=== PATIENT | female | born 1985 | race Caucasian/White ===

== ENCOUNTER 2022-03-19 21:41 | Inpatient (IN) | payer MEDICARE, MEDICAID, SELFPAY ==
[2022-03-19 21:55] VITALS: BP 111/78; PULSE 109; RESP 14; TEMP 36.4; O2SAT 100
--- NOTE | 2022-03-19 22:10 | XRR_ITS ---
PROCEDURE INFORMATION: Exam: XR Right Hand Exam date and time: 03/19/2022 11:06 PM Age: 36 years old Clinical indication: Injury or trauma; Other: Not specified; Blunt trauma (contusions or hematomas); Hand; Right TECHNIQUE: Imaging protocol: Radiologic exam of the Right hand. Views: 3 or more views. Frontal Oblique Lateral COMPARISON: CR XR forearm RT 2V [id number] 03/19/2022 11:04 PM FINDINGS: Bones/joints: There is normal alignment without fractures or dislocations. The joints appear unremarkable. The visualized incompletely evaluated wrist region is grossly unremarkable. Soft tissues: There is no radiographic soft tissue swelling. There are no radiopaque foreign bodies. Notes: If there is further concern, recommend follow-up radiographs or MRI for complete assessment. XR/XR hand RT min 3V* [id number] IMPRESSION: No fractures or dislocation of the right hand.
--- NOTE | 2022-03-19 22:11 | XRR_ITS ---
PROCEDURE INFORMATION: Exam: XR Right Forearm Exam date and time: 03/19/2022 11:04 PM Age: 36 years old Clinical indication: Injury or trauma; Other: Not specified; Blunt trauma (contusions or hematomas); Arm, lower; Right TECHNIQUE: Imaging protocol: Radiologic exam of the Right forearm. Views: 2 views. Frontal and lateral COMPARISON: No relevant prior studies available. FINDINGS: Bones/joints: There is normal alignment without fractures or dislocations. The visualized incompletely evaluated wrist and elbow joints are anatomically aligned. Soft tissues: There is no radiographic soft tissue swelling. There are no radiopaque foreign bodies. Notes: If there is further concern, recommend follow-up radiographs or bone scan for complete assessment. XR/XR forearm RT 2V [id number] IMPRESSION: No fractures or dislocation of the right forearm.
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
[2022-03-19 23:53] LABS: HCG Qualitative Urine. Negative (Negative)
[2022-03-19 23:59] LABS: Amphetamines Screen Urine Negative (Negative); Barbiturates Screen Urine Negative (Negative); Benzodiazepines Screen Urine Negative (Negative); Cocaine Screen Urine Negative (Negative); Opiate Screen Urine Negative (Negative); PCP Screen Urine Negative (Negative); THC Screen Urine Positive (Negative)
[2022-03-20 00:25] LABS: Basophils % 0.2 %; Eosinophils % 0.1 %; Hematocrit 34.5 % (37.0-47.0); Hemoglobin 11.8 g/dL (11.5-15.3); Lymphocytes # 1.8 10^3/uL (0.8-4.8); Lymphocytes % 12.8 %; Mean Corpuscular HGB Conc 34.2 g/dL (30.0-36.0); Mean Corpuscular Hemoglobin 30.5 pg (28.0-34.0); Mean Corpuscular Volume 89.1 fl (81-99); Mean Platelet Volume 9.9 fL (7.4-10.4); Monocytes # 0.7 10^3/uL (0.2-0.9); Monocytes % 4.8 %; Neutrophils # 11.15 10^3/uL (1.8-7.7); Neutrophils % 81.6 %; Nucleated Red Blood Cells % 0 %; Platelet Count 294 10^3/cmm (130-400); Red Blood Count 3.87 10^6/uL (4.1-5.3); Red Cell Distribution Width 14.3 % (12.1-15.1); White Blood Count 13.7 10^3/uL (4.0-10.0)
[2022-03-20 00:46] LABS: Alanine Aminotransferase 14 U/L (0-33); Albumin Level 4.5 g/dL (3.5-5.2); Alkaline Phosphatase 54 IU/L (35-105); Anion Gap 15.8 (5-19); Aspartate Amino Transferase 15 U/L (0-32); Blood Urea Nitrogen 16 mg/dL (6-20); Calcium 9.1 mg/dL (8.5-10.5); Carbon Dioxide 24 mmol/L (22-29); Chloride 99 mmol/L (98-107); Globulin 2.8 g/dL (1.3-4.6); Glomerular Filtration Rate 93.6 mL/min (90-130); Glucose 97 mg/dL (65-115); Osmolality Calculated 281 mOsm/kg (285-295); Potassium 3.8 mmol/L (3.5-5.1); Salicylate 0.4 mg/dL (3-10); Sodium 135 mmol/L (136-145); Total Bilirubin 0.4 mg/dL (0.15-1.2); Total Protein 7.3 g/dL (6.6-8.7)
[2022-03-20 00:50] LABS: Acetaminophen < 5.0 ug/mL (10-30); Alcohol Level < 10 mg/dL (0-10)
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
[2022-03-20 02:04] VITALS: BP 100/65; PULSE 87; RESP 16; TEMP 36.4; O2SAT 95
[2022-03-20 06:00] VITALS: BP 101/67; PULSE 82; RESP 16; TEMP 37.1; O2SAT 99
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
[2022-03-20] MEDS: venlafaxine ER (24HR) 75 mg Capsule 225 MG PO (09:00)
[2022-03-20] MEDS: metoprolol succinate ER (24 HR) 25 mg Tablet PO (09:01)
[2022-03-20] MEDS: hyDROXYzine 25 mg Capsule 50 MG PO ×2 (09:01→22:32)
[2022-03-20 14:00] VITALS: BP 110/75; PULSE 95; RESP 20; TEMP 36.8; O2SAT 96
[2022-03-20] MEDS: ARIPiprazole 10 mg Tablet PO (19:51)
[2022-03-20 20:00] VITALS: BP 112/73; PULSE 100; RESP 17; TEMP 36.8; O2SAT 96
[2022-03-20] MEDS: trazodone 50 mg Tablet PO (22:32)
[2022-03-21 06:00] VITALS: BP 98/63; PULSE 90; RESP 17; TEMP 36.8; O2SAT 97
[2022-03-21] MEDS: venlafaxine ER (24HR) 75 mg Capsule 225 MG PO (08:09)
[2022-03-21] MEDS: metoprolol succinate ER (24 HR) 25 mg Tablet PO (08:09)
[2022-03-21] MEDS: ARIPiprazole 10 mg Tablet PO (08:09)
[2022-03-21 10:11] LABS: Basophils % 0.8 %; Eosinophils # 0.2 10^3/uL (0.0-0.8); Eosinophils % 3.6 %; Hematocrit 38.8 % (37.0-47.0); Hemoglobin 12.9 g/dL (11.5-15.3); Lymphocytes # 2.6 10^3/uL (0.8-4.8); Lymphocytes % 48.8 %; Mean Corpuscular HGB Conc 33.2 g/dL (30.0-36.0); Mean Corpuscular Hemoglobin 30.5 pg (28.0-34.0); Mean Corpuscular Volume 91.7 fl (81-99); Monocytes # 0.6 10^3/uL (0.2-0.9); Monocytes % 10.9 %; Neutrophils # 1.87 10^3/uL (1.8-7.7); Neutrophils % 35.5 %; Nucleated Red Blood Cells % 0 %; Platelet Count 328 10^3/cmm (130-400); Red Blood Count 4.23 10^6/uL (4.1-5.3); Red Cell Distribution Width 14.6 % (12.1-15.1); White Blood Count 5.3 10^3/uL (4.0-10.0)
[2022-03-21 10:15] LABS: Add Urine Microscopic? NO; Charge for UA Resulting for Rev
[2022-03-21 10:27] LABS: Bilirubin Urine 1+ (Negative); Blood Urine Neg (Negative); Glucose Urine UA Norm (Normal); Ketones Urine 1+ (Negative); Nitrate Urine Negative (Negative); Protein Urine Neg (Negative); Urine Appearance Clear (CLEAR); Urine Color Yellow (Yellow); pH Urine 6.5 (5-7)
[2022-03-21 10:28] LABS: Leukocyte Esterase Urine Negative (Negative); Urobilinogen Urine 1 mg/dL (Negative)
[2022-03-21 10:42] LABS: Anion Gap 11.5 (5-19); Blood Urea Nitrogen 10 mg/dL (6-20); Calcium 9.3 mg/dL (8.5-10.5); Carbon Dioxide 30 mmol/L (22-29); Chloride 101 mmol/L (98-107); Glomerular Filtration Rate 93.6 mL/min (90-130); Glucose 101 mg/dL (65-115); Osmolality Calculated 285 mOsm/kg (285-295); Potassium 4.5 mmol/L (3.5-5.1); Sodium 138 mmol/L (136-145)
[2022-03-21 13:47] VITALS: BP 91/51; PULSE 91; RESP 16; TEMP 36.9; O2SAT 99
[2022-03-21 13:58] VITALS: BP 108/72
--- NOTE | 2022-03-21 17:03 | P.NPUPN_ITS ---
Subjective NPU Subjective: Patient presents today reporting that there have been no ill effects from the Abilify. We discussed that is the first and most desired initial response and our desire is to titrate to effect. We continue to discuss her psychosis and she seems more open to speaking to this com writer about some of the challenges of her life. She reports that her mother visited today but she is really struggling with the idea of allowing her mother to connect with her. We discussed aftercare and residential arrangements as well. Mental Status Exam MSE Comments: This is a underweight white female in hospital scrubs with adequate grooming but limited eye contact. No abnormal movements except for mild psychomotor retardation. Cooperative with exam in mild distress. Speech was decreased rate and volume with continued pauses either as a sign of thought blocking or as a sign of measuring how to answer the questions, but seeming more like thought blocking. Mood described as okay; affect odd. Thought process, linear and organized for the most part. Thought content: patient denied any suicidal or homicidal ideation, there were no delusions reported but paranoia clearly existed, possible persecutory delusions. She denied auditory or visual hallucinations, but it was clear whether she has had an internal pre-occupation. Attention and concentration were limited, and memory was questionable but unclear whether that was on purpose or not. She is alert and oriented to person and place and understands purpose possibly. Insight limited, judgment limited, impulse control impaired. Vitals/I&O/Wt Last Vital Signs Temp 98.4 F 03/21/22 13:47 Pulse 91 03/21/22 13:47 Resp 16 03/21/22 13:47 BP 108/72 03/21/22 13:58 Pulse Ox 99 03/21/22 13:47 Weight last 48 hrs Weight 50.349 kg Data NPU : 03/21/22 09:55 03/21/22 09:55 A&P Assessment and plan (1) Acute psychosis: Status: Acute (2) Patient needs psychiatric hold for evaluation: Status: Acute Plan This is a 27-year-old, white female, with possible active addiction, clear psychosis, and reports of odd and aggressive behaviors on a 96-hour hold. 1. Initiated Abilify 10 mg p.o. daily 03/20/2022. 2. Encourage individual, group, and milieu therapy. 3. Continue q-15 minute checks for safety. 4. Encourage sober living treatment after discharge, at the highest level of care, to which she is willing to commit. Involuntary Hold Information 96 Hour Hold: 96 Hour Involuntary Admission: Yes 96 Hour Hold Ending Date: 03/26/22 96 Hour Hold Ending Time: 01:10 Attestations NPU Medical Necessity Statement*: Inpatient hospitalization is medically necessary and the clinically appropriate intervention, at this time. We will monitor medications and make changes as indicated. Likely length of stay is four to six days. Coding Level of Care Code Acute Avionics Supervisor for Liz Fwd Diagnoses Acute psychosis F23 Patient needs psychiatric hold for evaluation Z00.8
[2022-03-21] MEDS: nicotine 2 mg Gum BUCCAL (19:46)
[2022-03-21] MEDS: hyDROXYzine 25 mg Capsule 50 MG PO (20:05)
[2022-03-21] MEDS: trazodone 50 mg Tablet PO (20:06)
[2022-03-21 20:26] VITALS: BP 106/76; PULSE 105; RESP 17; TEMP 36.6; O2SAT 94
[2022-03-22 06:00] VITALS: BP 96/70; PULSE 91; RESP 16; TEMP 36.8; O2SAT 97
--- NOTE | 2022-03-22 09:23 | PC.NURSE ---
Walked & talked with patient. She feels that life will be full of more bullshit for her. She doesn't want to have kids, but says that her cards have been dealt and she will an asshole & a have a bullshit job. She spoke of her anger issues. 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
[2022-03-22] MEDS: venlafaxine ER (24HR) 75 mg Capsule 225 MG PO (10:34)
[2022-03-22] MEDS: ARIPiprazole 10 mg Tablet PO (10:35)
[2022-03-22] MEDS: metoprolol succinate ER (24 HR) 25 mg Tablet PO (10:35)
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
[2022-03-22 14:00] VITALS: BP 104/73; PULSE 95; RESP 16; TEMP 36.8; O2SAT 97
[2022-03-22] MEDS: nicotine 2 mg Gum BUCCAL (16:49)
[2022-03-22] MEDS: BuSPIRONE 10 mg Tablet PO (17:47)
[2022-03-22 21:11] VITALS: BP 98/65; PULSE 84; RESP 18; TEMP 36.6; O2SAT 98
[2022-03-22] MEDS: trazodone 50 mg Tablet PO (22:05)
[2022-03-22] MEDS: hyDROXYzine 25 mg Capsule 50 MG PO (22:05)
[2022-03-23 06:00] VITALS: BP 101/71; PULSE 88; RESP 20; TEMP 37.1; O2SAT 98
--- NOTE | 2022-03-23 07:42 | P.NPUPN_ITS ---
Subjective NPU Subjective: Patient resents today reporting that she feels the BuSpar was really helpful but medications seem to be having an overall positive impact. She struggled to get illustrations but seem to be less preoccupied. She was able to talk about family and that she has a 22-year-old son. She was talking about different possible living arrangements but that things in the air. We again discussed taking her time and making sure that this is treated appropriately so that she has significant resolution of the psychosis and is able to start fresh and discussed us needing to monitor her closely until c hanges are noted. Mental Status Exam MSE Comments: This is a underweight white female in hospital scrubs with appropriate grooming and improving eye contact. No abnormal movements except for mild psychomotor retardation and a significant gait abnormality was causing significant side to side motion as she propels her self forward.? Cooperative with exam in mild distress. Speech was decreased rate and volume with less pauses for likely thought blocking.? Mood described as better: Affect less odd. Thought process, linear and organized for the most part. Thought content: patient denied any suicidal or homicidal ideation, there were no delusions reported but paranoia clearly existed as well as possible persecutory delusions. She denied auditory or visual hallucinations, but it was clear there is internal pre-occupation at times Attention and concentration were limited, and memory was questionable but unclear whether that was on purpose or not. She is alert and oriented to person and place and understands purpose possibly. Insight and judgment limited but improving, impulse control impaired. 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 1. Initiated Abilify 10 mg p.o. daily 03/20/2022. BuSpar 10 mg p.o. twice daily added 03/22/2022 2. Encourage individual, group, and milieu therapy. 3. Continue q-15 minute checks for safety. 4. Encourage sober living treatment after discharge, at the highest level of care, to which she is willing to commit. Involuntary Hold Information 96 Hour Hold: 96 Hour Involuntary Admission: Yes 96 Hour Hold Ending Date: 03/26/22 96 Hour Hold Ending Time: 01:10 Attestations NPU Medical Necessity Statement*: Inpatient hospitalization is medically necessary and the clinically appropriate intervention, at this time. We will monitor medications and make changes as indicated. Likely length of stay is four to six days. Coding Level of Care Code Acute Transmission Design Engineer for Liz Jimenez Diagnoses History of traumatic brain injury Z87.820 Acute psychosis F23 No pertinent past medical history Z78.9 Patient needs psychiatric hold for evaluation Z00.8
[2022-03-23] MEDS: ondansetron 4 MG Tablet PO (09:26)
[2022-03-23] MEDS: venlafaxine ER (24HR) 75 mg Capsule 225 MG PO (09:26)
[2022-03-23] MEDS: ARIPiprazole 10 mg Tablet PO (09:26)
[2022-03-23] MEDS: metoprolol succinate ER (24 HR) 25 mg Tablet PO (09:27)
[2022-03-23] MEDS: nicotine 2 mg Gum BUCCAL ×3 (09:27→18:26)
[2022-03-23] MEDS: BuSPIRONE 10 mg Tablet PO ×2 (09:27→18:00)
[2022-03-23] MEDS: calcium carbonate 500 mg Chew Tablet 1000 MG PO ×2 (11:51→15:56)
[2022-03-23 14:00] VITALS: BP 97/71; PULSE 82; RESP 17; TEMP 36.6; O2SAT 93
[2022-03-23 19:51] VITALS: BP 110/81; PULSE 90; RESP 16; TEMP 36.8; O2SAT 99
[2022-03-23] MEDS: simethicone 80 mg Chew PO (20:19)
[2022-03-23] MEDS: loperamide 2 mg Capsule PO (23:17)
[2022-03-24 06:00] VITALS: BP 113/66; PULSE 77; RESP 16; TEMP 36.6; O2SAT 97
[2022-03-24] MEDS: ARIPiprazole 10 mg Tablet PO (09:04)
[2022-03-24] MEDS: metoprolol succinate ER (24 HR) 25 mg Tablet PO (09:04)
[2022-03-24] MEDS: venlafaxine ER (24HR) 75 mg Capsule 225 MG PO (09:04)
[2022-03-24] MEDS: BuSPIRONE 10 mg Tablet PO ×2 (09:04→18:00)
[2022-03-24 14:00] VITALS: BP 101/71; PULSE 87; RESP 12; TEMP 36.9; O2SAT 98
[2022-03-24] MEDS: simethicone 80 mg Chew PO (15:44)
--- NOTE | 2022-03-24 15:44 | W.PM.NPUPNS ---
Subjective NPU Subjective: Patient admitted on 96 hour hold with bizarre psychotic symptoms and continues to remain guarded regarding her hospitalization. She reports that she was here because she had punched a wall. She reports being upset at her mother and reports that she has a son who lives outside of her home. She reports that she has been hearing voices, patient reports that she has not had any side effects from her medication. She had reported a history of traumatic brain injury. She denies depressed mood at this time. Mental Status Exam MSE Comments: This is a underweight white female in hospital scrubs with appropriate grooming and improving eye contact. No abnormal movements except for mild psychomotor retardation.? Cooperative with exam in mild distress. Speech was decreased rate and volume with continued evidence of thought blocking. Mood described as a little better: Affect less odd. Thought process, linear and organized for the most part. Thought content: patient denied any suicidal or homicidal ideation, there were no delusions reported but paranoia clearly existed as well as possible persecutory delusions. She denied auditory or visual hallucinations, and she appeared to be responding to internal stimuli. Attention and concentration were limited, and memory was questionable but unclear whether that was on purpose or not. She is alert and oriented to person and place and understands purpose possibly. Insight and judgment limited but improving, impulse control impaired. 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 1. Continue Abilify 10mg daily. Continue ? BuSpar 10 mg p.o. twice daily . 2. Encourage individual, group, and milieu therapy. 3. Continue q-15 minute checks for safety. 4. Encourage sober living treatment after discharge, at the highest level of care, to which she is willing to commit. Involuntary Hold Information 96 Hour Hold: 96 Hour Involuntary Admission: Yes 96 Hour Hold Ending Date: 03/26/22 96 Hour Hold Ending Time: 01:10 Attestations NPU Medical Necessity Statement*: Inpatient hospitalization is medically necessary and the clinically appropriate intervention, at this time. We will monitor medications and make changes as indicated. Likely length of stay is four to six days. Coding Level of Care Code Established Pt Acute [facility] Partner for [facility]g Fwd Patient Type Established History Problem Focused Exam Problem Focused Medical Decision Making Straight Forward Diagnoses History of traumatic brain injury Z87.820 Patient needs psychiatric hold for evaluation Z00.8 Acute psychosis F23 No pertinent past medical history Z78.9
[2022-03-24] MEDS: nicotine 2 mg Gum BUCCAL (16:59)
[2022-03-24 20:19] VITALS: BP 105/76; PULSE 76; RESP 16; TEMP 36.3; O2SAT 100
[2022-03-25 06:00] VITALS: BP 110/79; PULSE 80; RESP 18; TEMP 36.7; O2SAT 98
[2022-03-25] MEDS: venlafaxine ER (24HR) 75 mg Capsule 225 MG PO (08:26)
[2022-03-25] MEDS: metoprolol succinate ER (24 HR) 25 mg Tablet PO (08:26)
[2022-03-25] MEDS: ARIPiprazole 10 mg Tablet PO (08:26)
[2022-03-25] MEDS: BuSPIRONE 10 mg Tablet PO ×2 (08:26→17:09)
[2022-03-25] MEDS: simethicone 80 mg Chew PO (08:27)
--- NOTE | 2022-03-25 11:56 | P.NPUPN_ITS ---
Subjective NPU Subjective: The patient reports that she is still uncertain about her reasons for hospitalization but reports that she came here because part of her forearm felt out of place. SHe reports history of anger and impulsivity with a history of punching various objects including harden. She reports that she has been less distracted by the voices. She reports no feelings of hopelessness. She still at times remained confused on the unit and appeared somewhat difficult to engage despite being polite and compliant with medications. She reports struggling to take medications and endorsed some withdrawal symptoms when forgetting to take her 225mg of venlafaxine. She was unable to describe why she was taking these medications. Mental Status Exam MSE Comments: This is a underweight white female in hospital scrubs with appropriate grooming and improving eye contact. No abnormal movements except for mild psychomotor retardation.? Cooperative with exam in mild distress. Speech was decreased rate and volume with continued evidence of thought blocking.? Mood described as better: Affect remained blunted. Thought process,nonlinear and superficial. Thought content: patient denied any suicidal or homicidal ideation, there was more evidence of delusions of persecutions. She denied auditory or visual hallucinations, and she appeared to be responding to internal stimuli.? Attention and concentration were limited, and memory was questionable but unclear whether that was on purpose or not. She is alert and oriented to person and place and purpose (to get help) Insight and judgment were poor. impulse control remained limited. 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 1. Increase Abilify 15mg daily.? Continue ? BuSpar 10 mg p.o. twice daily . Reduce Effexor to 150mg in am due to concern about 2d6 drug drug interaction with abilify causing increase risk of serotonin syndrome. 2. Encourage individual, group, and milieu therapy. 3. Continue q-15 minute checks for safety. 4. Encourage sober living treatment after discharge, at the highest level of care, to which she is willing to commit. Involuntary Hold Information 96 Hour Hold: 96 Hour Involuntary Admission: Yes 96 Hour Hold Ending Date: 03/26/22 96 Hour Hold Ending Time: 01:10 Attestations NPU Medical Necessity Statement*: Inpatient hospitalization is medically necessary and the clinically appropriate intervention, at this time. We will monitor medications and make changes as indicated. Likely length of stay is four to six days. Filed for 21 day stay today involuntarily. Coding Level of Care Code Established Pt Acute Automobile Upholstery Trim Installer for Liz Jimenez Patient Type Established History Problem Focused Exam Problem Focused Medical Decision Making Straight Forward Diagnoses History of traumatic brain injury Z87.820 Patient needs psychiatric hold for evaluation Z00.8 Acute psychosis F23
[2022-03-25] MEDS: nicotine 2 mg Gum BUCCAL ×2 (11:58→15:11)
[2022-03-25 13:06] VITALS: BP 111/74; PULSE 74; RESP 18; TEMP 36.6; O2SAT 97
[2022-03-25 19:59] VITALS: BP 111/74; PULSE 88; RESP 18; TEMP 36.5; O2SAT 95
[2022-03-26] MEDS: acetaminophen 325 mg Tablet 650 MG PO (05:03)
[2022-03-26 06:00] VITALS: BP 107/75; PULSE 92; RESP 16; TEMP 36.4; O2SAT 98
[2022-03-26] MEDS: ARIPiprazole 10 mg Tablet 15 MG PO (09:43)
[2022-03-26] MEDS: BuSPIRONE 10 mg Tablet PO ×2 (09:44→18:39)
[2022-03-26] MEDS: metoprolol succinate ER (24 HR) 25 mg Tablet PO (09:44)
[2022-03-26] MEDS: venlafaxine ER (24HR) 150 mg Capsule PO (09:44)
[2022-03-26] MEDS: nicotine 2 mg Gum BUCCAL (09:44)
[2022-03-26] MEDS: OLANZapine 5 mg ODT PO (12:08)
--- NOTE | 2022-03-26 13:25 | W.PM.NPUPNS ---
Subjective NPU Subjective: The patient reports feeling confused at times, she had no aggressive outbursts, she has been trying to participate in groups. She reports adequate sleep and reports that her thoughts have been less obsessive per patient . She reports that she continues to have a problem with poor decision making. She reports that she had freaked out after the presence of a dog in the past reminded her of past trauma. She reported no worsening of mood and no worsening anxiety with the reduction of effexor to 150mg daily. No side effects reported today. Mental Status Exam MSE Comments: This is a underweight white female in hospital scrubs with appropriate grooming and improving eye contact. No abnormal movements except for mild psychomotor retardation.? Cooperative with exam in no distress. Speech was decreased rate and volume with continued evidence of thought blocking.? Mood described as? better: Affect remained blunted. ? Thought process,nonlinear and superficial.? Thought content: patient denied any suicidal or homicidal ideation, there was more evidence of delusions of persecutions. ? She denied auditory or visual hallucinations, and she appeared to be responding to internal stimuli.? Attention and concentration were limited, and memory appeared better today in regards to remote recall. She is alert and oriented to person and place and purpose (to get help) Insight and judgment were poor.? impulse control remained limited.? 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 1. Continue Abilify 15mg daily.? Continue ? BuSpar 10 mg p.o. twice daily . Continue Effexor to 150mg in am. 2. Encourage individual, group, and milieu therapy. 3. Continue q-15 minute checks for safety. 4. Encourage sober living treatment after discharge, at the highest level of care, to which she is willing to commit. 5. Assessment of functioning completed by OT, patient has court hearing tommorow for 21 day hold. Involuntary Hold Information 96 Hour Hold: 96 Hour Involuntary Admission: Yes 96 Hour Hold Ending Date: 03/26/22 96 Hour Hold Ending Time: 01:10 Attestations NPU Medical Necessity Statement*: Inpatient hospitalization is medically necessary and the clinically appropriate intervention, at this time. We will monitor medications and make changes as indicated. Likely length of stay is four to six days.? Filed for [address] [place].? Coding Level of Care Code Acute Dentures Lab Technician for Liz Jimenez Diagnoses History of traumatic brain injury Z87.820 Patient needs psychiatric hold for evaluation Z00.8 Acute psychosis F23 No pertinent past medical history Z78.9
[2022-03-26 14:00] VITALS: BP 113/75; PULSE 99; RESP 18; TEMP 36.7; O2SAT 99
--- NOTE | 2022-03-26 14:37 | PC.NURSE ---
NEW ORDERS NEW ORDER RECEIVED FROM DR. WOLFF TO OBTAIN OT CONSULT FOR SAFETY AND EVALUATE FOR INDEPENDENT LIVING,
--- NOTE | 2022-03-26 16:22 | PC.NURSE ---
21 DAY SERVED PT WAS SERVED 21 DAY PAPERWORK AT 1615. PT WAS CALM AND COOPERATIVE. PT WAS EDUCATED ON PROCESS, BUT DOES NOT UNDERSTAND WHAT THE 21 DAY HOLD IS, WAS UNABLE TO VERBALIZE UNDERSTANDING DUE TO PSYCHOSIS.
[2022-03-26 19:56] VITALS: BP 105/72; PULSE 78; RESP 18; TEMP 36.6; O2SAT 99
[2022-03-27 06:00] VITALS: BP 100/67; PULSE 76; RESP 16; TEMP 36.8; O2SAT 98
[2022-03-27] MEDS: BuSPIRONE 10 mg Tablet PO ×2 (09:05→17:06)
[2022-03-27] MEDS: OLANZapine 5 mg ODT PO (09:05)
[2022-03-27] MEDS: metoprolol succinate ER (24 HR) 25 mg Tablet PO (09:05)
[2022-03-27] MEDS: venlafaxine ER (24HR) 150 mg Capsule PO (09:05)
[2022-03-27] MEDS: ARIPiprazole 10 mg Tablet 15 MG PO (09:05)
--- NOTE | 2022-03-27 11:12 | P.NPUPN_ITS ---
Subjective NPU Subjective: The patient is 36 y.o white female with TBI and psychosis along with depression seen today. Patient did not go to court but was placed on 21 day hold. She reports that she feels as if she is making more progress and remains hopeful about finding a place to live independently potentially as her homelessness had caused her to decompensate. She reports struggles with remembering to take medications and also reported having had severe depression in the past leading her to not wanting to shower or brush her teeth for several days at a time. She reports that she still has unusual thoughts in her head but did not elaborate today. She reports that the voices have diminished at this time. She denied any current thoughts of hurting herself or others. Mental Status Exam MSE Comments: This is a underweight white female in hospital scrubs with appropriate grooming and improving eye contact. No abnormal movements except for mild psychomotor retardation.? Cooperative with exam in no? distress. Speech was decreased rate and volume with continued evidence of thought blocking, quality of speech was monotone with little inflection in voice.? Mood described as? better: Affect remained blunted. ? Thought process, more linear but some periods of derailment were evident. ? Thought content: patient denied any suicidal or homicidal ideation, there was more evidence of delusions of persecutions. ? She denied auditory or visual hallucinations, and she appeared to be responding to internal stimuli.? Attention and concentration were limited, and memory appeared better today in regards to remote recall. She is alert and oriented to person and place and purpose (to get help) Insight and judgment were improving but still remained guarded. ? impulse control remained limited.? 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 Abilify 20mg daily.? Continue ? BuSpar 10 mg p.o. twice daily . Continue? plan for reduction of effexor with new antidepressant to be considered such as zoloft as patient reported withdrawal symptoms when forgetting to take effexor in the past. Encourage individual, group, and milieu therapy. Continue q-15 minute checks for safety. 4. Involuntary Hold Information 96 Hour Hold: 96 Hour Involuntary Admission: Yes 96 Hour Hold Ending Date: 03/26/22 96 Hour Hold Ending Time: 01:10 Attestations NPU Medical Necessity Statement*: Inpatient hospitalization is medically necessary and the clinically appropriate intervention, at this time. We will monitor medications and make changes as indicated. Likely length of stay is four to six days.?Patient on 21 day hold. Coding Level of Care Code Established Pt Acute Data Modeling Specialist for Chg Fwd Patient Type Established History Problem Focused Exam Problem Focused Medical Decision Making Straight Forward Diagnoses Patient needs psychiatric hold for evaluation Z00.8 Acute psychosis F23 No pertinent past medical history Z78.9 Traumatic brain injury S06.9X9A Psychotic disorder F29
--- NOTE | 2022-03-27 11:22 | PC.NURSE ---
PT INFORMED OF COURT DATE FOR 21 DAY HOLD THIS AM. PT STATES SHE DOES NOT WANT TO GO TO COURT, THAT SHE FEELS LIKE SHE NEEDS TO BE HERE SO SHE DOES NOT NEED TO GO. PT WAS EDUCATED ON HER RIGHTS AND SHE COULD GO IF SHE WANTS. PT CONTINUES TO DECLINE GOING. COURTS WERE NOTIFIED. PT IS ANXIOUS DUE TO THE COURT DATE. MEDICATIONS WERE OFFERED AND PT ACCEPTS. MED NURSE NOTIFIED TO GIVE PRN WITH AM MEDS. PT CONTINUES TO DENY PAIN. DENIES SI/HI AND AVH AT THIS TIME. ALL QUESTIONS ANSWERED AND SUPPORT VOICED.
[2022-03-27] MEDS: nicotine 2 mg Gum BUCCAL (12:26)
[2022-03-27 14:00] VITALS: BP 107/77; PULSE 80; RESP 16; TEMP 36.7; O2SAT 97
[2022-03-27 20:09] VITALS: BP 90/61; PULSE 81; RESP 15; TEMP 36.4; O2SAT 98
[2022-03-28] MEDS: acetaminophen 325 mg Tablet 650 MG PO (04:39)
[2022-03-28 06:00] VITALS: BP 80/52; PULSE 76; RESP 14; TEMP 36.6; O2SAT 99
[2022-03-28] MEDS: metoprolol succinate ER (24 HR) 25 mg Tablet PO (08:27)
[2022-03-28] MEDS: ARIPiprazole 10 mg Tablet 15 MG PO (08:27)
[2022-03-28] MEDS: BuSPIRONE 10 mg Tablet PO ×2 (08:27→20:29)
[2022-03-28] MEDS: venlafaxine ER (24HR) 150 mg Capsule PO (08:27)
[2022-03-28] MEDS: nicotine 2 mg Gum BUCCAL (10:00)
[2022-03-28 14:00] VITALS: BP 97/55; PULSE 82; RESP 17; TEMP 36.6; O2SAT 98
--- NOTE | 2022-03-28 15:15 | W.PM.NPUPNS ---
Subjective NPU Subjective: The patient is 36 y.o white female with TBI and psychosis along with depression seen today.? Patient reports spending time trying to work on improving herself here. She reports that she is optimistic about living in supportive living with reports of struggles with safety in regards to personal well being including difficulty with attending to activities of daily living. Patient reports adequate sleep, no side effects from taper of effexor. She reports chronic struggles with concentration. She reports no feelings of hopelessness, but reports having frequent periods of sadness with continued problems with unusual thoughts that she was unable to describe. Mental Status Exam MSE Comments: This is a underweight white female in hospital scrubs with appropriate grooming and improving eye contact. No abnormal movements except for mild psychomotor retardation.? Cooperative with exam in no? distress. Speech was decreased rate and volume with continued evidence of thought blocking, quality of speech was monotone with little inflection in voice.? Mood described as? better: Affect remained flat.; ? Thought process, more linear but some periods of derailment were evident.? ? Thought content: patient denied any suicidal or homicidal ideation, there was evidence of paranoia with overvalued ideas and she appeared easily startled. She denied auditory or visual hallucinations, but she did not appear to be responding to internal stimuli.? Attention and concentration were limited, and memory appeared better today in regards to remote recall. She is alert and oriented to person and place and purpose (to get help) Insight and judgment were improving but still remained guarded. ? impulse control remained guarded. 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 Abilify 20mg daily.? Continue ? BuSpar 10 mg p.o. twice daily . Continue? plan for reduction of effexor down to 112.5mg today with new antidepressant to be considered such as zoloft as patient reported withdrawal symptoms when forgetting to take effexor in the past.? Encourage individual, group, and milieu therapy. Continue q-15 minute checks for safety. 4. Involuntary Hold Information 96 Hour Hold: 96 Hour Involuntary Admission: Yes 96 Hour Hold Ending Date: 03/26/22 96 Hour Hold Ending Time: 01:10 Attestations NPU Medical Necessity Statement*: Inpatient hospitalization is medically necessary and the clinically appropriate intervention, at this time. We will monitor medications and make changes as indicated. Likely length of stay is four to six days.?Patient on 21 day hold.? Coding Level of Care Code Established Pt Acute Character Impersonator for Hayder[facility] Fwd Patient Type Established History Problem Focused Exam Problem Focused Medical Decision Making Straight Forward Diagnoses Psychotic disorder F29 Traumatic brain injury S06.9X9A History of traumatic brain injury Z87.820 Patient needs psychiatric hold for evaluation Z00.8 Acute psychosis F23
[2022-03-28] MEDS: simethicone 80 mg Chew PO ×2 (17:59→20:29)
[2022-03-28 20:26] VITALS: BP 90/59; PULSE 74; RESP 16; TEMP 36.7; O2SAT 98
[2022-03-29 06:00] VITALS: BP 111/73; PULSE 72; RESP 16; TEMP 36.8; O2SAT 99
[2022-03-29] MEDS: ARIPiprazole 10 mg Tablet 20 MG PO (08:07)
[2022-03-29] MEDS: BuSPIRONE 10 mg Tablet PO ×2 (08:07→19:56)
[2022-03-29] MEDS: metoprolol succinate ER (24 HR) 25 mg Tablet PO (08:07)
[2022-03-29] MEDS: venlafaxine ER (24HR) 37.5 mg Capsule 112.5 MG PO (08:08)
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
[2022-03-29] MEDS: nicotine 2 mg Gum BUCCAL (13:00)
[2022-03-29 14:00] VITALS: BP 107/72; PULSE 84; RESP 16; TEMP 36.6; O2SAT 98
--- NOTE | 2022-03-29 15:08 | PC.NURSE ---
refused scheduled Buspar, pt said she doesn't want the afternoon dose, only in the morning and evening.
[2022-03-29] MEDS: simethicone 80 mg Chew PO (19:59)
[2022-03-29 22:00] VITALS: BP 103/72; PULSE 74; RESP 18; TEMP 36.4; O2SAT 98
[2022-03-30 06:00] VITALS: BP 110/68; PULSE 57; RESP 16; TEMP 36.6; O2SAT 92
[2022-03-30] MEDS: ARIPiprazole 10 mg Tablet 20 MG PO (08:31)
[2022-03-30] MEDS: venlafaxine ER (24HR) 37.5 mg Capsule 112.5 MG PO (08:32)
[2022-03-30] MEDS: nicotine 2 mg Gum BUCCAL ×2 (08:32→15:11)
[2022-03-30] MEDS: metoprolol succinate ER (24 HR) 25 mg Tablet PO (08:32)
[2022-03-30] MEDS: BuSPIRONE 10 mg Tablet PO ×3 (08:32→19:55)
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
[2022-03-30 14:00] VITALS: BP 112/78; PULSE 84; RESP 16; TEMP 36.6; O2SAT 96
[2022-03-30 20:38] VITALS: BP 114/65; PULSE 78; RESP 16; TEMP 36.6; O2SAT 96
[2022-03-31 06:00] VITALS: BP 98/63; PULSE 69; RESP 17; TEMP 36.6; O2SAT 98
[2022-03-31] MEDS: ARIPiprazole 10 mg Tablet 20 MG PO (08:04)
[2022-03-31] MEDS: metoprolol succinate ER (24 HR) 25 mg Tablet PO (08:05)
[2022-03-31] MEDS: BuSPIRONE 10 mg Tablet 15 MG PO ×3 (08:05→19:30)
[2022-03-31] MEDS: venlafaxine ER (24HR) 75 mg Capsule PO (08:05)
[2022-03-31 14:00] VITALS: BP 102/71; PULSE 81; RESP 17; TEMP 36.6; O2SAT 96
[2022-03-31] MEDS: simethicone 80 mg Chew PO (16:53)
--- NOTE | 2022-03-31 16:54 | PC.NURSE ---
PRN SIMETHICONE 80 MG GIVEN PO PER PT C/O FLATULENCE.
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
[2022-03-31 20:07] VITALS: BP 91/58; PULSE 74; RESP 16; TEMP 36.5; O2SAT 98
[2022-04-01] MEDS: trazodone 50 mg Tablet PO ×2 (01:05→20:45)
[2022-04-01 06:00] VITALS: BP 90/51; PULSE 80; RESP 16; TEMP 36.7; O2SAT 99
[2022-04-01] MEDS: metoprolol succinate ER (24 HR) 25 mg Tablet PO (08:27)
[2022-04-01] MEDS: BuSPIRONE 10 mg Tablet 15 MG PO ×3 (08:27→20:45)
[2022-04-01] MEDS: venlafaxine ER (24HR) 75 mg Capsule PO (08:28)
[2022-04-01] MEDS: ARIPiprazole 10 mg Tablet 20 MG PO (08:28)
[2022-04-01 13:56] VITALS: BP 107/75; PULSE 96; RESP 17; TEMP 36.7; O2SAT 96
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
[2022-04-01] MEDS: nicotine 2 mg Gum BUCCAL (18:10)
[2022-04-01] MEDS: ketoconazole Shampoo 120 mL Btl 1 APPLIC TOPICAL (18:11)
[2022-04-01 20:21] VITALS: RESP 18
[2022-04-01] MEDS: simethicone 80 mg Chew PO (20:45)
[2022-04-02 06:00] VITALS: BP 91/60; PULSE 87; RESP 17; TEMP 36.9; O2SAT 98
[2022-04-02] MEDS: BuSPIRONE 10 mg Tablet 15 MG PO ×3 (08:38→21:05)
[2022-04-02] MEDS: venlafaxine ER (24HR) 75 mg Capsule PO (08:38)
[2022-04-02] MEDS: ARIPiprazole 10 mg Tablet 20 MG PO (08:38)
[2022-04-02] MEDS: metoprolol succinate ER (24 HR) 25 mg Tablet PO (08:39)
[2022-04-02 14:00] VITALS: BP 107/74; PULSE 85; RESP 16; TEMP 36.6; O2SAT 97
[2022-04-02] MEDS: nicotine 2 mg Gum BUCCAL (15:31)
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
[2022-04-02] MEDS: acetaminophen 325 mg Tablet 650 MG PO (18:41)
[2022-04-02 19:47] VITALS: BP 98/71; PULSE 80; RESP 17; TEMP 36.8; O2SAT 98
[2022-04-03 06:00] VITALS: BP 101/71; PULSE 80; RESP 17; TEMP 36.6; O2SAT 99
[2022-04-03] MEDS: metoprolol succinate ER (24 HR) 25 mg Tablet PO (08:04)
[2022-04-03] MEDS: ARIPiprazole 10 mg Tablet 20 MG PO (08:04)
[2022-04-03] MEDS: venlafaxine ER (24HR) 75 mg Capsule PO (08:04)
[2022-04-03] MEDS: BuSPIRONE 10 mg Tablet 15 MG PO ×3 (08:05→20:19)
[2022-04-03] MEDS: hyDROXYzine 25 mg Capsule 50 MG PO (08:48)
--- NOTE | 2022-04-03 08:48 | PC.NURSE ---
PRN VISTARIL 50 MG GIVEN PO PER PT C/O STATED ANXIETY...PT SAYS I JUST HATE TALKING ON THE PHONE
[2022-04-03 14:00] VITALS: BP 97/68; PULSE 88; RESP 15; TEMP 36.5; O2SAT 97
[2022-04-03] MEDS: nicotine 2 mg Gum BUCCAL (14:10)
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
[2022-04-03 19:43] VITALS: BP 98/73; PULSE 106; RESP 17; TEMP 36.9; O2SAT 98
[2022-04-04 06:00] VITALS: BP 101/66; PULSE 81; RESP 16; TEMP 37; O2SAT 98
[2022-04-04] MEDS: BuSPIRONE 10 mg Tablet 15 MG PO ×3 (08:28→22:08)
[2022-04-04] MEDS: ARIPiprazole 10 mg Tablet 20 MG PO (08:29)
[2022-04-04] MEDS: venlafaxine ER (24HR) 75 mg Capsule PO (08:29)
[2022-04-04] MEDS: metoprolol succinate ER (24 HR) 25 mg Tablet PO (08:30)
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
[2022-04-04 13:46] VITALS: BP 113/86; PULSE 74; RESP 16; TEMP 36.6; O2SAT 100
[2022-04-04] MEDS: acetaminophen 325 mg Tablet 650 MG PO (13:49)
[2022-04-04] MEDS: haloperidol 5 mg Tablet PO (16:12)
[2022-04-04 19:47] VITALS: BP 113/78; PULSE 80; RESP 16; TEMP 36.9; O2SAT 97
[2022-04-05 06:00] VITALS: BP 100/66; PULSE 76; RESP 15; TEMP 36.8; O2SAT 99
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
[2022-04-05] MEDS: metoprolol succinate ER (24 HR) 25 mg Tablet PO (09:22)
[2022-04-05] MEDS: venlafaxine ER (24HR) 75 mg Capsule PO (09:22)
[2022-04-05] MEDS: ARIPiprazole 10 mg Tablet 20 MG PO (09:22)
[2022-04-05] MEDS: BuSPIRONE 10 mg Tablet 15 MG PO ×3 (09:23→20:10)
[2022-04-05 13:47] VITALS: BP 102/61; PULSE 70; RESP 16; TEMP 36.8; O2SAT 99
[2022-04-05] MEDS: nicotine 2 mg Gum BUCCAL (17:12)
[2022-04-05 20:16] VITALS: BP 100/73; PULSE 80; RESP 16; TEMP 536.9; TEMP 998.5; O2SAT 99
[2022-04-06 06:00] VITALS: BP 109/72; PULSE 87; RESP 16; TEMP 36.8; O2SAT 98
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
[2022-04-06] MEDS: metoprolol succinate ER (24 HR) 25 mg Tablet PO (08:48)
[2022-04-06] MEDS: venlafaxine ER (24HR) 75 mg Capsule PO (08:49)
[2022-04-06] MEDS: BuSPIRONE 10 mg Tablet 15 MG PO ×3 (08:49→20:09)
[2022-04-06] MEDS: ARIPiprazole 10 mg Tablet 20 MG PO (08:49)
[2022-04-06 14:00] VITALS: BP 110/73; PULSE 92; RESP 18; TEMP 36.4; O2SAT 98
[2022-04-06 20:00] VITALS: BP 105/77; PULSE 79; RESP 18; TEMP 36.9; O2SAT 98
[2022-04-06] MEDS: trazodone 50 mg Tablet PO (20:09)
[2022-04-06] MEDS: simethicone 80 mg Chew PO (20:49)
[2022-04-07 06:00] VITALS: BP 95/59; PULSE 78; RESP 18; TEMP 36.8; O2SAT 98
[2022-04-07] MEDS: hyDROXYzine 25 mg Capsule 50 MG PO (08:08)
[2022-04-07] MEDS: BuSPIRONE 10 mg Tablet 15 MG PO ×3 (08:08→20:14)
[2022-04-07] MEDS: metoprolol succinate ER (24 HR) 25 mg Tablet PO (08:08)
[2022-04-07] MEDS: venlafaxine ER (24HR) 75 mg Capsule PO (08:08)
[2022-04-07] MEDS: ARIPiprazole 10 mg Tablet 20 MG PO (08:08)
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
[2022-04-07 14:00] VITALS: BP 92/60; PULSE 77; RESP 12; TEMP 37; O2SAT 98
[2022-04-07] MEDS: OLANZapine 5 mg ODT PO (18:17)
[2022-04-07 19:37] VITALS: BP 123/81; PULSE 105; RESP 17; TEMP 37; O2SAT 99
[2022-04-07] MEDS: trazodone 50 mg Tablet PO (20:15)
[2022-04-08] MEDS: ibuprofen 600 mg Tablet PO (05:36)
[2022-04-08 05:57] VITALS: BP 101/67; PULSE 83; RESP 16; TEMP 36.3; O2SAT 97
[2022-04-08] MEDS: BuSPIRONE 10 mg Tablet 15 MG PO ×3 (09:40→20:29)
[2022-04-08] MEDS: metoprolol succinate ER (24 HR) 25 mg Tablet PO (09:40)
[2022-04-08] MEDS: ARIPiprazole 10 mg Tablet 20 MG PO (09:40)
[2022-04-08] MEDS: venlafaxine ER (24HR) 37.5 mg Capsule PO (09:40)
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
[2022-04-08 14:00] VITALS: BP 106/75; PULSE 88; RESP 16; TEMP 36.6; O2SAT 97
[2022-04-08] MEDS: acetaminophen 325 mg Tablet 650 MG PO (18:01)
[2022-04-08 19:49] VITALS: BP 101/70; PULSE 92; RESP 20; TEMP 36.8; O2SAT 98
--- NOTE | 2022-04-08 20:14 | PC.NURSE ---
Pt voiced concern of the medication Toporol XL that she takes for her tachycardia. Pt thought it had been discontinued. Pt was educated that it had not been discontinued, that she in fact ws still getting it.
[2022-04-08] MEDS: trazodone 50 mg Tablet PO (20:29)
--- NOTE | 2022-04-08 22:07 | NUR.SHIFT ---
ASSESSMENT AT BEDSIDE. PT CALM AND COOPERATIVE. REPORTS ANXIETY DUE TO NOT KNOWING WHAT IS GOING TO HAPPEN WHEN I LEAVE HERE AND I FEEL LIKE I DON'T HAVE CONTROL OVER MY OWN LIFE. PT EASILY REDIRECTED AND ALLOWED TO JUST SPEAK ABOUT HER FEELINGS. PT APPEARED TO CALM AFTERWARD. TOOK ALL NIGHTTIME MEDS PRESCRIBED.
[2022-04-09 06:00] VITALS: BP 94/62; PULSE 81; RESP 16; TEMP 37; O2SAT 98
[2022-04-09] MEDS: BuSPIRONE 10 mg Tablet 15 MG PO (08:05)
[2022-04-09] MEDS: metoprolol succinate ER (24 HR) 25 mg Tablet PO (08:05)
[2022-04-09] MEDS: venlafaxine ER (24HR) 37.5 mg Capsule PO (08:05)
[2022-04-09] MEDS: ARIPiprazole 10 mg Tablet 20 MG PO (08:05)
[2022-04-09] MEDS: nicotine 2 mg Gum BUCCAL (09:38)
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
[2022-04-09 13:14] VITALS: BP 94/62; PULSE 81; RESP 16; TEMP 37; O2SAT 98
== END 2022-04-09 13:55 | disposition home or self-care (01) | DRG 885 ==
LOC: ER 03-20 00:19 → NP 03-20 00:54
PROVIDERS: Admitting Provider Psychiatry & Neurology Psychiatry; Emergency Provider Emergency Medicine; Visit Provider Psychiatry & Neurology Psychiatry
DX: F23 Brief psychotic disorder (principal); F32.A Depression, unspecified; M25.531 Pain in right wrist; M79.631 Pain in right forearm; F17.210 Nicotine dependence, cigarettes, uncomplicated; F10.10 Alcohol abuse, uncomplicated; F12.10 Cannabis abuse, uncomplicated; F15.11 Other stimulant abuse, in remission; Z59.01 Sheltered homelessness; Z87.820 Personal history of traumatic brain injury
CPT/HCPCS: 36415; 73090; 73130; 80048; 80053; 80306; 80307; 81003; 81025; 85025; 97150; 97165; 97166; 99285; Q0162

== ENCOUNTER 2023-02-23 11:59 | Inpatient (IN) | payer MEDICARE, MEDICAID, SELFPAY ==
[2023-02-23 11:59] VITALS: BP 132/95; PULSE 87; RESP 16; TEMP 37; O2SAT 97
--- NOTE | 2023-02-23 11:59 | ED.C_ITS ---
HPI - Psych General: Chief Complaint: Psychiatric Symptoms Stated Complaint: si Time Seen by Provider: 02/23/23 11:59 History of Present Illness: Ms. Marquez is a 37-year-old lady with significant past medical history of psychiatric disorder presented to the emergency department for suicidal ideation. She reports worsening symptoms without known specific provoking event for about the past week. She reports compliance with her medication regimen. She does not seem to have a specific plan however has fairly poor impulse control and insight other than just not feeling right. Intensity is moderate to severe. Does endorse some atraumatic back pain, no urinary symptoms or abd ominal pain, no associated neurologic symptoms, denies prior back injury. No other specific changes in health, exacerbating, or alleviating factors identified. Onset (ago): day(s) Duration: getting worse History of same: Yes Associated psychiatric symptoms: depression, suicidal ideation and other If self harm: admits thoughts of self harm Review of Systems General: Reports: 10 or more systems reviewed and unremarkable except in HPI and below PFSH ED PFSH: Medical History Acute psychosis Cannabis dependence History of traumatic brain injury Patient needs psychiatric hold for evaluation Psychiatric care Psychotic disorder Social History (Updated 02/23/23 @ 12:12 by Hai Luz MD) Smoking and tobacco status: current every day smoker Substance/Drug Use: current Physical Exam Const: COMMON NORMALS: alert GENERAL APPEARANCE: cooperative and well developed HENMT: COMMON NORMALS: normocephalic and atraumatic HEAD & SCALP: normocephalic and atraumatic Eye: COMMON NORMALS: conjunctivae normal CONJUNCTIVA: Yes conjunctivae normal SCLERA: sclerae normal Neck/C-Spine: COMMON NORMALS: supple GENERAL: Yes trachea midline Resp: COMMON NORMALS: normal respiratory effort and clear to auscultation bilaterally EFFORT & INSPECTION: Yes able to speak in complete sentences AUSCULTATION: clear to auscultation bilaterally Cardio: COMMON NORMALS: regular rate and regular rhythm RATE: regular rate RHYTHM: regular rhythm GI: COMMON NORMALS: Soft to palpation PALPATION: Yes Soft to palpation and No Tenderness to palpation present (GI) Back/Pelvis: LUMBAR SPINE/LOWER BACK: No lumbar spinal tenderness and No paraspinal muscle tenderness Extremity: GENERAL: Yes normal exam except as noted and No edema Neuro: COMMON NORMALS: moves all extremities SENSORIUM/ORIENTATION: Yes alert and No Orientation impaired Psych: ATTITUDE: Yes agitated MOOD & AFFECT: Yes anxious and Yes Labile affect present THOUGHT CONTENT: Yes Suicidality present INSIGHT: Limited insight present (Psych) JUDGEMENT: Fair judgement present (Psych) Course Vital Signs: Vital signs: Vital Signs Temperature 98.8 F 03/03/23 14:50 Pulse Rate 75 03/03/23 14:50 Respiratory Rate 16 03/03/23 14:50 Blood Pressure 105/75 03/03/23 14:50 Pulse Oximetry 96 03/03/23 14:50 Oxygen Delivery Me thod Room Air 03/03/23 14:00 MDM - Psych Medical Decision Making 37-year-old lady with history of TBI and psychiatric condition presents to the emergency department for suicidal ideation. Patient is nontoxic in appearance. She does endorse low back pain however this is nontraumatic and no abnormality identified on physical exam, no red flag symptoms. She is somewhat anxious and slightly labile. Medications for anxiolysis and back pain ordered. Labs demonstrate no significant hematologic or metabolic abnormality. TSH is normal. Urine drug screen is negative with the exception of positive THC and toxic ingestions are negative. Urinalysis is unremarkable. hCG negative. Unremarkable lumbar spine x-ray. Certainly given clinical history and provided clinical exam I do not feel that advanced imaging is needed at this time. Based on ED evaluation at this point there is no obvious condition that would preclude the patient from inpatient management of psychiatric concerns/symptoms. Discussed with psychiatry service and patient will be admitted to neuropsych unit. Medical Records I reviewed the patient's medical records. Lab Data I reviewed the patient's lab results. 02/23/23 12:25 02/23/23 12:25 Radiology Impressions Lumbar Spine X-Ray 02/23/23 12:10 IMPRESSION: UNREMARKABLE LUMBAR SPINE STUDY Laboratory Results WBC 4.7 10^3/uL (4.0-10.0) 02/23/23 12:25 RBC 4.69 10^6/uL (4.1-5.3) 02/23/23 12:25 Hgb 14.3 g/dL (11.5-15.3) 02/23/23 12:25 Hct 43.7 % (37.0-47.0) 02/23/23 12:25 MCV 93.2 fl (81-99) 02/23/23 12:25 MCH 30.5 pg (28.0-34.0) 02/23/23 12:25 MCHC 32.7 g/dL (30.0-36.0) 02/23/23 12:25 RDW 13.4 % (12.1-15.1) 02/23/23 12:25 Plt Count 325 10^3/cmm (130-400) 02/23/23 12:25 MPV 9.8 fL (7.4-10.4) 02/23/23 12:25 Neut % (Auto) 47.0 % 02/23/23 12:25 Lymph % (Auto) 41.0 % 02/23/23 12:25 [place] % (Auto) 9.2 % 02/23/23 12:25 Eos % (Auto) 1.7 % 02/23/23 12:25 Baso % (Auto) 0.9 % 02/23/23 12:25 Neut # (Auto) 2.19 10^3/uL (1.8-7.7) 02/23/23 12:25 Lymph # (Auto) 1.9 10^3/uL (0.8-4.8) 02/23/23 12:25 [place] # (Auto) 0.4 10^3/uL (0.2-0.9) 02/23/23 12:25 Eos # (Auto) 0.1 10^3/uL (0.0-0.8) 02/23/23 12:25 Baso # (Auto) 0.0 10^3/uL (0.0-0.1) 02/23/23 12:25 Nucleated RBC % (auto) 0 % 02/23/23 12:25 Nucleated RBCs # 0.0 /100WBC 02/23/23 12:25 Sodium 137 mmol/L (136-145) 02/23/23 12:25 Potassium 3.5 mmol/L (3.5-5.1) 02/23/23 12:25 Chloride 104 mmol/L (98-107) 02/23/23 12:25 Carbon Dioxide 21 mmol/L (22-29) L 02/23/23 12:25 Anion Gap 15.5 (5-19) 02/23/23 12:25 BUN 7 mg/dL (6-20) 02/23/23 12:25 Creatinine 0.7 mg/dL (0.5-0.9) 02/23/23 12:25 GFR Calculation 93.2 mL/min (90-130) 02/23/23 12:25 Glucose 102 mg/dL (65-115) 02/23/23 12:25 Calculated Osmolality 282 mOsm/kg (285-295) L 02/23/23 12:25 Calcium 9.1 mg/dL (8.5-10.5) 02/23/23 12:25 Total Bilirubin 0.3 mg/dL (0.15-1.2) 02/23/23 12:25 AST 17 U/L (0-32) 02/23/23 12:25 ALT 29 U/L (0-33) 02/23/23 12:25 Alkaline Phosphatase 52 U/L (35-105) 02/23/23 12:25 Total Protein 7.6 g/dL (6.6-8.7) 02/23/23 12:25 Albumin 4.5 g/dL (3.5-5.2) 02/23/23 12:25 Globulin 3.1 g/dL (1.3-4.6) 02/23/23 12:25 TSH 0.95 uIU/mL (0.27-4.20) 02/23/23 12:25 HCG, Qual Negative (Negative) 02/23/23 12:25 Urine Color Yellow (Yellow) 02/23/23 13:20 Urine Appearance Clear (CLEAR) 02/23/23 13:20 Urine pH 5 (5-7) 02/23/23 13:20 Ur Specific [place] 1.015 (1.005-1.030) 02/23/23 13:20 Urine Protein Neg (Negative) 02/23/23 13:20 Urine Glucose (UA) Norm (Normal) 02/23/23 13:20 Urine Ketones Negative (Negative) 02/23/23 13:20 Urine Blood Neg (Negative) 02/23/23 13:20 Urine Nitrate Negative (Negative) 02/23/23 13:20 Urine Bilirubin Neg (Negative) 02/23/23 13:20 Urine Urobilinogen Norm mg/dL (Negative) 02/23/23 13:20 Ur Leukocyte Esterase Negative (Negative) 02/23/23 13:20 Salicylates < 0.3 mg/dL (3-10) L 02/23/23 12:25 Urine Opiates Screen Negative ng/mL (Negative) 02/23/23 13:20 Acetaminophen < 5.0 ug/mL (10-30) L 02/23/23 12:25 Ur Barbiturates Screen Negative ng/mL (Negative) 02/23/23 13:20 Ur Phencyclidine Scrn Negative ng/mL (Negative) 02/23/23 13:20 Ur Amphetamines Screen Negative ng/mL (Negative) 02/23/23 13:20 U Benzodiazepines Scrn Negative ng/mL (Negative) 02/23/23 13:20 Urine Cocaine Screen Negative ng/mL (Negative) 02/23/23 13:20 U Marijuana (THC) Screen Positive ng/mL (Negative) H 02/23/23 13:20 Ethyl Alcohol < 10 mg/dL (0-10) 02/23/23 12:25 Discharge Plan Discharge Patient Disposition: Admitted As Inpatient Admit Provider: Rome Segura Clinical Impression: Suicidal ideation, Back pain Condition: Stable Discharge Diet: Regular Discharge Activity: Resume usual activity Coding Level of Care Code ED Supervisor Cigarette Making Department for Liz Jimenez
--- NOTE | 2023-02-23 12:10 | XR_ITS ---
WS: [id number] EXAMINATION: XR lumbar spine 2-3V* [id number] L-SPINE : 3 views REASON FOR EXAM: atraumatic low back pain < 1 week COMPARISON: None available. ORDER DATE: 02/23/2023 1:29 PM FINDINGS: The lumbar vertebral bodies and the disc spaces are normal in width. In the lumbar vertebra, there i s no evidence of compression deformities or spondylolisthesis. XR/XR lumbar spine 2-3V* [id number] IMPRESSION: UNREMARKABLE LUMBAR SPINE STUDY
[2023-02-23] MEDS: LORazepam 1 mg Tablet PO (12:18)
[2023-02-23] MEDS: ketorolac 30 mg/mL INJ IM (12:18)
--- NOTE | 2023-02-23 12:21 | PC.NURSE ---
Patient changed into paper scrubs, belongings removed from room, sitter outside of room. Pt did seem agitated and yelled when was asking questions.
[2023-02-23 12:33] LABS: Basophils % 0.9 %; Eosinophils # 0.1 10^3/uL (0.0-0.8); Eosinophils % 1.7 %; Hematocrit 43.7 % (37.0-47.0); Hemoglobin 14.3 g/dL (11.5-15.3); Lymphocytes # 1.9 10^3/uL (0.8-4.8); Mean Corpuscular HGB Conc 32.7 g/dL (30.0-36.0); Mean Corpuscular Hemoglobin 30.5 pg (28.0-34.0); Mean Corpuscular Volume 93.2 fl (81-99); Mean Platelet Volume 9.8 fL (7.4-10.4); Monocytes # 0.4 10^3/uL (0.2-0.9); Monocytes % 9.2 %; Neutrophils # 2.19 10^3/uL (1.8-7.7); Nucleated Red Blood Cells % 0 %; Platelet Count 325 10^3/cmm (130-400); Red Blood Count 4.69 10^6/uL (4.1-5.3); Red Cell Distribution Width 13.4 % (12.1-15.1); White Blood Count 4.7 10^3/uL (4.0-10.0)
--- NOTE | 2023-02-23 12:33 | PC.NURSE ---
Dr. Luz was ok with mother staying in patient's room at this time due to her increased irritability.
[2023-02-23 12:49] LABS: HCG, Serum Qual Negative (Negative)
[2023-02-23 13:00] LABS: Alanine Aminotransferase 29 U/L (0-33); Albumin Level 4.5 g/dL (3.5-5.2); Alkaline Phosphatase 52 U/L (35-105); Anion Gap 15.5 (5-19); Aspartate Amino Transferase 17 U/L (0-32); Blood Urea Nitrogen 7 mg/dL (6-20); Calcium 9.1 mg/dL (8.5-10.5); Carbon Dioxide 21 mmol/L (22-29); Chloride 104 mmol/L (98-107); Globulin 3.1 g/dL (1.3-4.6); Glomerular Filtration Rate 93.2 mL/min (90-130); Glucose 102 mg/dL (65-115); Osmolality Calculated 282 mOsm/kg (285-295); Potassium 3.5 mmol/L (3.5-5.1); Sodium 137 mmol/L (136-145); Thyroid Stimulating Hormone 0.95 uIU/mL (0.27-4.20); Total Bilirubin 0.3 mg/dL (0.15-1.2); Total Protein 7.6 g/dL (6.6-8.7)
[2023-02-23 13:02] LABS: Acetaminophen < 5.0 ug/mL (10-30); Alcohol Level < 10 mg/dL (0-10); Salicylate < 0.3 mg/dL (3-10)
[2023-02-23 13:25] LABS: Add Urine Microscopic? NO; Charge for UA Resulting for Rev
[2023-02-23 13:26] LABS: Bilirubin Urine Neg (Negative); Blood Urine Neg (Negative); Glucose Urine UA Norm (Normal); Ketones Urine Negative (Negative); Leukocyte Esterase Urine Negative (Negative); Nitrate Urine Negative (Negative); Protein Urine Neg (Negative); Specific Gravity, Urine 1.015 (1.005-1.030); Urine Appearance Clear (CLEAR); Urine Color Yellow (Yellow); Urobilinogen Urine Norm (Negative); pH Urine 5 (5-7)
[2023-02-23 13:37] LABS: Amphetamines Screen Urine Negative (Negative); Barbiturates Screen Urine Negative (Negative); Benzodiazepines Screen Urine Negative (Negative); Cocaine Screen Urine Negative (Negative); Opiate Screen Urine Negative (Negative); PCP Screen Urine Negative (Negative); THC Screen Urine Positive (Negative)
[2023-02-23 13:38] VITALS: BP 132/95; PULSE 87; O2SAT 98
[2023-02-23 14:00] VITALS: BP 125/87; PULSE 86; RESP 17; TEMP 36.4; O2SAT 98
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
[2023-02-23] MEDS: OLANZapine 10 mg TABLET PO (20:45)
[2023-02-23 21:05] VITALS: BP 105/69; PULSE 98; RESP 16; TEMP 36.8; O2SAT 98
[2023-02-24 06:00] VITALS: BP 106/74; PULSE 96; RESP 16; TEMP 36.4; O2SAT 98
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
[2023-02-24 08:13] VITALS: BP 106/73; PULSE 70; O2SAT 98
[2023-02-24] MEDS: metoprolol succinate ER (24 HR) 25 mg Tablet PO (08:21)
[2023-02-24 13:09] VITALS: BP 109/58; PULSE 73; RESP 15; TEMP 36.7; O2SAT 97
[2023-02-24] MEDS: acetaminophen 325 mg Tablet 650 MG PO (14:03)
[2023-02-24] MEDS: OLANZapine 10 mg TABLET PO (20:20)
[2023-02-24 22:00] VITALS: BP 100/58; PULSE 73; RESP 18; TEMP 36.7; O2SAT 97
[2023-02-25 06:00] VITALS: BP 97/69; PULSE 96; RESP 16; O2SAT 96
[2023-02-25] MEDS: fluoxetine 20 mg Capsule PO (08:51)
[2023-02-25] MEDS: BuSPIRONE 10 mg Tablet 15 MG PO (08:51)
[2023-02-25] MEDS: metoprolol succinate ER (24 HR) 25 mg Tablet PO (08:51)
[2023-02-25 14:04] VITALS: BP 117/76; PULSE 68; RESP 14; TEMP 36.3; O2SAT 98
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
[2023-02-25] MEDS: OLANZapine 10 mg TABLET PO (19:51)
--- NOTE | 2023-02-25 20:00 | PC.NURSE ---
Pt refused 2100 medications buspar 15mg and trazodone 100mg. Pt stated I dont fucking like to take my buspar at night because it gives me too much energy and the trazodone makes me sleep and it is too much, I only like to take my buspar during the day .
[2023-02-25 21:22] VITALS: RESP 14
[2023-02-26 06:00] VITALS: BP 107/77; PULSE 75; RESP 16; TEMP 36.6; O2SAT 98
[2023-02-26] MEDS: fluoxetine 20 mg Capsule PO (09:52)
[2023-02-26] MEDS: metoprolol succinate ER (24 HR) 25 mg Tablet PO (09:52)
[2023-02-26] MEDS: BuSPIRONE 10 mg Tablet 15 MG PO ×2 (09:52→20:16)
[2023-02-26 14:00] VITALS: BP 99/67; PULSE 78; TEMP 37; O2SAT 98
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
[2023-02-26 20:00] VITALS: BP 112/78; PULSE 80; RESP 14; TEMP 36.7; O2SAT 99
[2023-02-26] MEDS: OLANZapine 10 mg TABLET PO (20:16)
[2023-02-27 06:00] VITALS: BP 111/17; PULSE 72; RESP 12; TEMP 36.9; O2SAT 97
[2023-02-27] MEDS: BuSPIRONE 10 mg Tablet 15 MG PO ×2 (08:51→21:05)
[2023-02-27] MEDS: metoprolol succinate ER (24 HR) 25 mg Tablet PO (08:51)
[2023-02-27] MEDS: fluoxetine 20 mg Capsule PO (08:51)
[2023-02-27] MEDS: acetaminophen 325 mg Tablet 650 MG PO (09:23)
[2023-02-27 14:00] VITALS: BP 99/63; PULSE 82; RESP 16; TEMP 36.9; O2SAT 97
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
[2023-02-27 20:51] VITALS: RESP 16
[2023-02-27] MEDS: OLANZapine 10 mg TABLET PO (21:05)
[2023-02-28 06:00] VITALS: BP 96/60; PULSE 81; RESP 16; TEMP 36.9; O2SAT 95
[2023-02-28] MEDS: BuSPIRONE 10 mg Tablet 15 MG PO ×2 (09:05→20:43)
[2023-02-28] MEDS: metoprolol succinate ER (24 HR) 25 mg Tablet PO (09:06)
[2023-02-28] MEDS: fluoxetine 20 mg Capsule PO (09:06)
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
[2023-02-28 14:00] VITALS: BP 105/71; PULSE 78; RESP 16; TEMP 36.9; O2SAT 95
[2023-02-28] MEDS: OLANZapine 10 mg TABLET PO (20:43)
[2023-02-28 21:23] VITALS: BP 99/67; PULSE 75; RESP 18; TEMP 36.5; O2SAT 98
[2023-03-01 06:00] VITALS: BP 105/74; PULSE 74; RESP 16; TEMP 36.4; O2SAT 99
[2023-03-01] MEDS: BuSPIRONE 10 mg Tablet 15 MG PO ×2 (08:42→20:27)
[2023-03-01] MEDS: metoprolol succinate ER (24 HR) 25 mg Tablet PO (08:43)
[2023-03-01] MEDS: fluoxetine 20 mg Capsule PO (08:43)
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
[2023-03-01 14:00] VITALS: BP 107/70; PULSE 77; RESP 16; TEMP 36.6; O2SAT 97
[2023-03-01] MEDS: nicotine 2 mg Gum BUCCAL (18:24)
[2023-03-01 20:15] VITALS: BP 101/73; PULSE 81; RESP 18; TEMP 36.8; O2SAT 98
[2023-03-01] MEDS: OLANZapine 10 mg TABLET PO (20:27)
[2023-03-02 06:00] VITALS: BP 102/62; PULSE 70; RESP 16; TEMP 37.1; O2SAT 97
[2023-03-02] MEDS: metoprolol succinate ER (24 HR) 25 mg Tablet PO (08:29)
[2023-03-02] MEDS: fluoxetine 20 mg Capsule PO (08:29)
[2023-03-02] MEDS: BuSPIRONE 10 mg Tablet 15 MG PO ×2 (08:29→20:40)
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
[2023-03-02 14:00] VITALS: BP 96/62; PULSE 77; RESP 16; TEMP 36.8; O2SAT 97
[2023-03-02 20:27] VITALS: BP 101/69; PULSE 79; RESP 16; TEMP 36.7; O2SAT 96
[2023-03-02] MEDS: OLANZapine 10 mg TABLET PO (20:40)
[2023-03-02] MEDS: acetaminophen 325 mg Tablet 650 MG PO (20:42)
[2023-03-03 06:00] VITALS: BP 130/85; PULSE 63; RESP 16; TEMP 36.6; O2SAT 99
[2023-03-03] MEDS: fluoxetine 20 mg Capsule PO (08:07)
[2023-03-03] MEDS: metoprolol succinate ER (24 HR) 25 mg Tablet PO (08:07)
[2023-03-03] MEDS: BuSPIRONE 10 mg Tablet 15 MG PO (08:07)
[2023-03-03] MEDS: acetaminophen 325 mg Tablet 650 MG PO (08:09)
[2023-03-03 14:00] VITALS: BP 105/75; PULSE 75; RESP 16; TEMP 37.1; O2SAT 96
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
--- NOTE | 2023-03-03 14:07 | DCPLANNER ---
RIC completed on 03/03/23 @ 7076. Pt was given a copy of rights and she stated she understood her rights.
[2023-03-03 14:50] VITALS: BP 105/75; PULSE 75; RESP 16; TEMP 37.1; O2SAT 96
== END 2023-03-03 15:38 | disposition home or self-care (01) | DRG 885 ==
LOC: ER 12:21 → NP 12:51
PROVIDERS: Admitting Provider Psychiatry & Neurology Psychiatry; Emergency Provider Emergency Medicine; Visit Provider Psychiatry & Neurology Psychiatry
DX: F29 Unspecified psychosis not due to a substance or known physiological condition (principal); R45.851 Suicidal ideations; F33.9 Major depressive disorder, recurrent, unspecified; F12.20 Cannabis dependence, uncomplicated; F17.210 Nicotine dependence, cigarettes, uncomplicated; M54.50 Low back pain, unspecified; Z87.820 Personal history of traumatic brain injury; F41.9 Anxiety disorder, unspecified
CPT/HCPCS: 36415; 72100; 80053; 80306; 80307; 81003; 84443; 84703; 85025; 96372; 97150; 97165; 99238; 99285; J1885

== ENCOUNTER 2023-03-19 11:10 | Emergency (ER) | payer MEDICARE, MEDICAID, SELFPAY ==
[2023-03-19 11:24] VITALS: BP 109/75; TEMP 36.8; BMI 21.6
[2023-03-19 11:27] VITALS: PULSE 70; RESP 18; O2SAT 97
[2023-03-19] MEDS: tizanidine 4 mg Tablet PO (12:16)
[2023-03-19] MEDS: dexamethasone 10 mg/mL INJ IVP (12:18)
[2023-03-19] MEDS: ketorolac 30 mg/mL INJ IVP (12:18)
[2023-03-19] MEDS: morphine 4 mg/mL SDV 1 mL 2 MG IM (13:03)
--- NOTE | 2023-03-19 13:08 | W.ED.BACK ---
HPI - Back Pain/Injury General: Chief Complaint: Back Pain/Injury Stated Complaint: Lower back pain Time Seen by Provider: 03/19/23 11:14 Source: patient Mode of arrival: ambulatory History of Present Illness: IR 7-year-old female presents to the emergency room with complaint of back pain. He is complaining of low back pain that began when she woke up This morning. She does not recall any particular incident or triggering event no trauma. She is intermittently had musculoskeletal back pain in the past. No urinary retention or fecal incontinence. No radiation of pain into the lower extremities no saddle paresthesias MD elicited complaint: back pain Pertinent past history: prior back pain Onset (ago): hour(s) Timing: constant Severity: moderate Quality: sharp Location: lumbar spine Radiation: none Exacerbating factors: sitting upright and walking Relieving factors: supine Associated symptoms: Deny abdominal pain, arthralgias, chills, change in bowel habits, difficulty walking, dysuria, fatigue, fecal incontinence, fever(s), hematuria, myalgias, nausea, numbness, syncope, tingling/numbness/burning, urinary frequency, urinary urgency, vomiting or weakness Review of Systems Const: Denies: fever(s), chills or fatigue ENMT: Denies: throat pain, ear or mastoid pain, nasal discharge or nasal congestion Card: Denies: syncope Resp: Denies: dyspnea, productive cough or non-productive cough GI: Denies: abdominal pain, nausea, vomiting, fecal incontinence or change in bowel habits : Denies: flank pain, dysuria, urinary frequency, urinary urgency or hematuria Musc: Reports: back pain; Denies: neck pain or extremity pain Skin/Breast: Denies: rash or pruritus Neuro: Denies: difficulty walking PFSH ED PFSH: Medical History Acute psychosis Cannabis dependence History of traumatic brain injury Patient needs psychiatric hold for evaluation Psychiatric care Psychotic disorder Social History Smoking and tobacco status: current every day smoker Substance/Drug Use: current Physical Exam Const: COMMON NORMALS: no acute distress GENERAL APPEARANCE: cooperative and comfortable ORIENTATION/CONSCIOUSNESS: Yes awake, Yes oriented to person, Yes oriented to place and Yes oriented to time HENMT: COMMON NORMALS: normocephalic, atraumatic and hearing grossly normal bilaterally HEAD & SCALP: normocephalic and atraumatic Resp: COMMON NORMALS: normal respiratory effort, No retractions, No use of accessory muscles and clear to auscultation bilaterally AUSCULTATION: clear to auscultation bilaterally Cardio: COMMON NORMALS: regular rate, regular rhythm and No murmurs present (Cardio) RATE: regular rate RHYTHM: regular rhythm Extremity: COMMON NORMALS: normal to inspection, capillary refill normal, no clubbing, cyanosis or edema, no calf tenderness and no pedal edema Neuro: SENSORIUM/ORIENTATION: Yes oriented to person, Yes oriented to place and Yes oriented to time OTHER: Deep tendon reflexes +2/4 patellar and Achilles tendon dorsum plantar flex strength 5 of 5 EHL 5 of 5 straight leg raising negative all test done bilaterally and are negative. Sensation lower extremities normal Skin: COMMON NORMALS: no rashes or lesions noted GENERAL SKIN EXAM: no rashes or lesions noted Course Vital Signs: Vital signs: Vital Signs Temperature 98.3 F 03/19/23 11:24 Pulse Rate 70 03/19/23 11:27 Respiratory Rate 18 03/19/23 11:27 Blood Pressure 109/75 03/19/23 11:24 Pulse Oximetry 97 03/19/23 11:27 Oxygen Delivery Me thod Room Air 03/19/23 11:27 MDM - Back Pain/Injury Medical Decision Making No red flag symptoms. Mostly musculoskeletal very positional exacerbated by changing positions standing and walking. No radicular-like symptoms. No trauma associated. Patient given titrated pain medications moderate improvement. Discharged home with pain medications the steroids muscle relaxer follow-up primary care. May benefit from physical therapy. Medical Records I reviewed the patient's medical records. Labs I reviewed the patient's lab results. Discharge Plan Discharge Patient Disposition: Home Clinical Impression: Strain of lumbar region Condition: Stable Prescriptions: New tizanidine 4 mg tablet 4 mg PO Q6H PRN (Reason: muscle spasticity) Qty: 20 0RF Rx Instructions: do not exceed 3 doses per 24 hrs prednisone 20 mg tablet 20 mg PO TID Qty: 15 0RF Rx Instructions: 1 p.o. 3 times daily x3 days, 1 p.o. twice daily x2 days, 1 p.o. daily x2 days diclofenac sodium 75 mg tablet,delayed release (DR/EC) 75 mg PO Q12H PRN (Reason: pain) Qty: 20 0RF No Action fluoxetine 20 mg Capsule 20 mg PO DAILY 30 Days Qty: 30 1RF olanzapine 10 mg tablet 10 mg PO BEDTIME 30 Days Qty: 30 1RF metoprolol succinate 25 mg tablet extended release 24 hr 25 mg PO DAILY 30 Days Qty: 30 1RF buspirone 15 mg tablet 15 mg PO BID 30 Days Qty: 60 1RF Discharge Orders: Discharge ED (Routine); Ordered 03/19/23 Ordered By: Riaz Marquez Referrals: Prachi Chandra DO [Primary Care Provider] - Discharge Diet: Usual diet Discharge Activity: Increase activity as tolerated Patient Instructions: Back Pain (ED), Opioid Safety, Pain Management Coding Level of Care Code ED Industrial Safety And Health Manager for Liz Jimenez
== END 2023-03-19 13:55 | disposition home or self-care (01) ==
PROVIDERS: Emergency Provider Family Medicine; PCP Family Medicine
DX: S39.012A Strain of muscle, fascia and tendon of lower back, initial encounter (principal); X58.XXXA Exposure to other specified factors, initial encounter
CPT/HCPCS: 96372; 96374; 96375; 99284; J1100; J1885; J2270

== ENCOUNTER 2023-05-14 16:09 | Emergency (ER) | payer MEDICARE, MEDICAID, SELFPAY ==
[2023-05-14] VITALS (27 sets, daily range): BP systolic 101–134; BP diastolic 67–87; PULSE 0–98; RESP 14–32; TEMP 36.8; O2SAT 93–99; BMI 20.5
--- NOTE | 2023-05-14 16:15 | XRR_ITS ---
PROCEDURE INFORMATION: Exam: XR Chest Exam date and time: 05/14/2023 5:06 PM Age: 37 years old Clinical indication: Pain; Chest pressure; Additional info: Cp TECHNIQUE: Imaging protocol: Radiologic exam of the chest. Views: 1 view. COMPARISON: No relevant prior studies available. FINDINGS: Lungs: Unremarkable. No consolidation. Pleural spaces: Unremarkable. No pleural effusion. No pneumothorax. Heart/Mediastinum: Unremarkable. No cardiomegaly. Bones/joints: Unremarkable. XR/XR chest 1V portable [id number] IMPRESSION: No acute findings.
--- NOTE | 2023-05-14 16:24 | CTR_ITS ---
PROCEDURE INFORMATION: Exam: CT Head Without Contrast Exam date and time: 05/14/2023 5:04 PM Age: 37 years old Clinical indication: Altered mental status/memory loss and other: Overdose; Additional info: AMS TECHNIQUE: Imaging protocol: Computed tomography of the head without contrast. Radiation optimization: All CT scans at this facility use at least one of these dose optimization techniques: automated exposure control; mA and/or kV adjustment per patient size (includes targeted exams where dose is matched to clinical indication); or iterative reconstruction. REPORTING DATA: Count of CT and Cardiac NM exams in prior 12 months: This patient has received 0 known CTs and 0 known cardiac nuclear medicine studies in the 12 months prior to the current study. COMPARISON: No relevant prior studies available. RADIATION DOSE METRICS: Total DLP (mGy-cm): 1113 FINDINGS: Brain: Right frontal probable chronic infarct suspected, MRI could further characterize this. Cerebral ventricles: No ventriculomegaly. Paranasal sinuses: Visualized sinuses are unremarkable. No fluid levels. Mastoid air cells: Visualized mastoid air cells are well aerated. Bones/joints: Unremarkable. No acute fracture. Soft tissues: Unremarkable. CT/CT head wo con* [id number] IMPRESSION: 1. Negative for intracranial hemorrhage or mass effect 2. Right frontal probable chronic infarct suspected, MRI could further characterize this.
[2023-05-14] MEDS: LORazepam 2 mg/mL INJ 1 mL IM (16:26)
[2023-05-14] MEDS: haloperidol inj 5 mg/mL INJ 1 mL IM (16:26)
--- NOTE | 2023-05-14 16:34 | ED_ITS ---
HPI - Altered Mental Status General: Chief Complaint: Altered Mental Status Stated Complaint: overdose Time Seen by Provider: 05/14/23 16:13 Source: EMS Mode of arrival: EMS Limitations: altered mental status History of Present Illness: 37-year-old female brought in by EMS they were called for possible seizure patient was altered. She does have a history of psychiatric issues along with drug abuse in the past when they arrived they states she was face down unresponsive they did give her Narcan she is now awake but is combative here patient will mumble words and does not make any sense is the only thing she is able to tell me that was appropriate was her name no other history is provided by EMS. Review of Systems General: Reports: ROS unobtainable due to mental status PFSH ED PFSH: Medical History Acute psychosis Cannabis dependence History of traumatic brain injury Patient needs psychiatric hold for evaluation Psychiatric care Psychotic disorder Social History Smoking and tobacco status: current every day smoker Substance/Drug Use: current Physical Exam Const: COMMON NORMALS: negative for patient oriented x3 GENERAL APPEARANCE: in distress and disheveled ORIENTATION/CONSCIOUSNESS: Yes oriented to person; not oriented to place and not oriented to time HENMT: COMMON NORMALS: normocephalic and atraumatic HEAD & SCALP: normocephalic and atraumatic Eye: COMMON NORMALS: Equal, round and reactive pupils present PUPIL: Yes Equal, round and reactive pupils present Neck/C-Spine: COMMON NORMALS: supple Chest: COMMONS NORMALS: normal inspection of the chest and normal palpation of entire chest wall Resp: COMMON NORMALS: normal respiratory effort and clear to auscultation bilaterally AUSCULTATION: clear to auscultation bilaterally Cardio: COMMON NORMALS: regular rate and regular rhythm RATE: regular rate RHYTHM: regular rhythm GI: COMMON NORMALS: Normal to inspection, nondistended, normoactive bowel so unds present INSPECTION: Yes normal to inspection Extremity: COMMON NORMALS: normal to inspection Neuro: COMMON NORMALS: negative for patient oriented x3 SENSORIUM/ORIENTATION: Yes oriented to person, No oriented to place and No oriented to time Psych: COMMON NORMALS: negative for mental status grossly normal and negative for Normal thought process present ATTITUDE: Yes agitated ACTIVITY/MOTOR BEHAVIOR: Yes disorganized behavior THOUGHT PROCESS: abnormal and Illogical thought process present Skin: COMMON NORMALS: no rashes or lesions noted GENERAL SKIN EXAM: no rashes or lesions noted Course Vital Signs: Vital signs: Vital Signs Temperature 98.2 F 05/14/23 16:13 Pulse Rate 97 05/14/23 16:55 Respiratory Rate 19 H 05/14/23 16:55 Blood Pressure 116/77 05/14/23 16:45 Pulse Oximetry 99 05/14/23 16:55 Oxygen Delivery Me thod Room Air 05/14/23 16:35 MDM - Altered Mental Status Medical Decision Making Patient presents here initially with confusion she is now awake and alert she is ambulatory she is answering all my questions appropriately family believes she may have had a seizure that they witnessed could have had a seizure with a postictal. We will get her neurology follow-up blood work head CT here is normal she is at her baseline she is stable for discharge return if worsening. Lab Data 05/14/23 16:55 05/14/23 16:55 Radiology Impressions Chest X-Ray 05/14/23 16:15 IMPRESSION: No acute findings. Head CT 05/14/23 16:24 IMPRESSION: 1. Negative for intracranial hemorrhage or mass effect 2. Right frontal probable chronic infarct suspected, MRI could further characterize this. Laboratory Results WBC 4.54 10^3/uL (3.29-11.43) 05/14/23 16:55 RBC 3.94 10^6/uL (3.85-5.65) 05/14/23 16:55 Hgb 12.30 g/dL (11.27-16.99) 05/14/23 16:55 Hct 36.3 % (36-47) 05/14/23 16:55 MCV 92.1 fl (85-98) 05/14/23 16:55 MCH 31.2 pg (27-33) 05/14/23 16:55 MCHC 33.9 g/dL (30-55) 05/14/23 16:55 RDW 13.2 % (12.1-15.1) 05/14/23 16:55 Plt Count 274 10^3/cmm (157-399) 05/14/23 16:55 MPV 10.0 fL (7.4-10.4) 05/14/23 16:55 Neut % (Auto) 51.5 % 05/14/23 16:55 Lymph % (Auto) 37.0 % 05/14/23 16:55 [place] % (Auto) 8.4 % 05/14/23 16:55 Eos % (Auto) 2.2 % 05/14/23 16:55 Baso % (Auto) 0.7 % 05/14/23 16:55 Neut # (Auto) 2.34 10^3/uL (1.8-7.7) 05/14/23 16:55 Lymph # (Auto) 1.7 10^3/uL (0.8-4.8) 05/14/23 16:55 [place] # (Auto) 0.4 10^3/uL (0.2-0.9) 05/14/23 16:55 Eos # (Auto) 0.1 10^3/uL (0.0-0.8) 05/14/23 16:55 Baso # (Auto) 0.0 10^3/uL (0.0-0.1) 05/14/23 16:55 Nucleated RBC % (auto) 0 % 05/14/23 16:55 Nucleated RBCs # 0.0 /100WBC 05/14/23 16:55 Sodium 138 mmol/L (136-145) 05/14/23 16:55 Potassium 3.4 mmol/L (3.5-5.1) L 05/14/23 16:55 Chloride 103 mmol/L (98-107) 05/14/23 16:55 Carbon Dioxide 23 mmol/L (22-29) 05/14/23 16:55 Anion Gap 15.4 (5-19) 05/14/23 16:55 BUN 8 mg/dL (6-20) 05/14/23 16:55 Creatinine 0.8 mg/dL (0.5-0.9) 05/14/23 16:55 GFR Calculation 79.9 mL/min (90-130) L 05/14/23 16:55 Glucose 91 mg/dL (65-115) 05/14/23 16:55 Calculated Osmolality 284 mOsm/kg (285-295) L 05/14/23 16:55 Calcium 8.7 mg/dL (8.5-10.5) 05/14/23 16:55 Total Bilirubin 0.2 mg/dL (0.15-1.2) 05/14/23 16:55 AST 16 U/L (0-32) 05/14/23 16:55 ALT 15 U/L (0-33) 05/14/23 16:55 Alkaline Phosphatase 42 U/L (35-105) 05/14/23 16:55 Total Protein 6.6 g/dL (6.6-8.7) 05/14/23 16:55 Albumin 4.2 g/dL (3.5-5.2) 05/14/23 16:55 Globulin 2.4 g/dL (1.3-4.6) 05/14/23 16:55 HCG, Qual Negative (Negative) 05/14/23 16:40 Salicylates < 0.3 mg/dL (3-10) L 05/14/23 16:55 Urine Opiates Screen Negative ng/mL (Negative) 05/14/23 16:40 Acetaminophen < 5.0 ug/mL (10-30) L 05/14/23 16:55 Ur Barbiturates Screen Negative ng/mL (Negative) 05/14/23 16:40 Ur Phencyclidine Scrn Negative ng/mL (Negative) 05/14/23 16:40 Ur Amphetamines Screen Negative ng/mL (Negative) 05/14/23 16:40 U Benzodiazepines Scrn Negative ng/mL (Negative) 05/14/23 16:40 Urine Cocaine Screen Negative ng/mL (Negative) 05/14/23 16:40 U Marijuana (THC) Screen Positive ng/mL (Negative) H 05/14/23 16:40 Ethyl Alcohol < 10 mg/dL (0-10) 05/14/23 16:55 Discharge Plan Discharge Patient Disposition: Home Clinical Impression: Altered mental status, Seizure Condition: Stable Prescriptions: No Action olanzapine 10 mg tablet 10 mg PO BEDTIME 30 Days Qty: 30 1RF buspirone 15 mg tablet 15 mg PO BID 30 Days Qty: 60 1RF fluoxetine 40 mg capsule 40 mg PO QAM Qty: 30 0RF Rx Instructions: Take one capsule by mouth every morning; stop 20 mg dose metoprolol succinate 25 mg tablet extended release 24 hr 25 mg PO DAILY 30 Days Qty: 30 1RF tizanidine 4 mg tablet 4 mg PO Q6H PRN (Reason: muscle spasticity) Qty: 20 0RF Rx Instructions: do not exceed 3 doses per 24 hrs diclofenac sodium 75 mg tablet,delayed release (DR/EC) 75 mg PO Q12H PRN (Reason: pain) Qty: 20 0RF Discharge Orders: Discharge ED (Routine); Ordered 05/14/23 Ordered By: Loren De La Rosa Referrals: Senia Briggs MD [Physician] - 1-3 days Prachi Chandra DO [Primary Care Provider] - Discharge Diet: Advance as tolerated Discharge Activity: Resume usual activity Patient Instructions: Altered Mental Status (ED), Generalized Tonic Clonic Sei zuriris (ED) Coding Level of Care Code ED Pediatric Radiologist for Liz Jimenez
--- NOTE | 2023-05-14 16:56 | ECG_ITS ---
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 Measurements Intervals [place] Rate: 93 P: 54 [place]: 124 QRS: 65 QRSD: 81 T: 51 QT: 345 QTc: 429 Interpretive Statements SINUS RHYTHM WITH MARKED SINUS ARRHYTHMIA No previous ECG available for comparison Electronically Signed On 05-14-2023 21:24:15 CDT by Celestino Mcgee M.D. [id number]
[2023-05-14 17:02] LABS: HCG Qualitative Urine. Negative (Negative)
[2023-05-14 17:15] LABS: Basophils % 0.7 %; Eosinophils # 0.1 10^3/uL (0.0-0.8); Eosinophils % 2.2 %; Hematocrit 36.3 % (36-47); Lymphocytes # 1.7 10^3/uL (0.8-4.8); Mean Corpuscular HGB Conc 33.9 g/dL (30-55); Mean Corpuscular Hemoglobin 31.2 pg (27-33); Mean Corpuscular Volume 92.1 fl (85-98); Monocytes # 0.4 10^3/uL (0.2-0.9); Monocytes % 8.4 %; Neutrophils # 2.34 10^3/uL (1.8-7.7); Neutrophils % 51.5 %; Nucleated Red Blood Cells % 0 %; Platelet Count 274 10^3/cmm (157-399); Red Blood Count 3.94 10^6/uL (3.85-5.65); Red Cell Distribution Width 13.2 % (12.1-15.1); White Blood Count 4.54 10^3/uL (3.29-11.43)
[2023-05-14 17:16] LABS: Amphetamines Screen Urine Negative (Negative); Barbiturates Screen Urine Negative (Negative); Benzodiazepines Screen Urine Negative (Negative); Cocaine Screen Urine Negative (Negative); Opiate Screen Urine Negative (Negative); PCP Screen Urine Negative (Negative); THC Screen Urine Positive (Negative)
[2023-05-14 17:27] LABS: Alanine Aminotransferase 15 U/L (0-33); Albumin Level 4.2 g/dL (3.5-5.2); Alkaline Phosphatase 42 U/L (35-105); Anion Gap 15.4 (5-19); Aspartate Amino Transferase 16 U/L (0-32); Blood Urea Nitrogen 8 mg/dL (6-20); Calcium 8.7 mg/dL (8.5-10.5); Carbon Dioxide 23 mmol/L (22-29); Chloride 103 mmol/L (98-107); Globulin 2.4 g/dL (1.3-4.6); Glomerular Filtration Rate 79.9 mL/min (90-130); Glucose 91 mg/dL (65-115); Osmolality Calculated 284 mOsm/kg (285-295); Potassium 3.4 mmol/L (3.5-5.1); Sodium 138 mmol/L (136-145); Total Bilirubin 0.2 mg/dL (0.15-1.2); Total Protein 6.6 g/dL (6.6-8.7)
[2023-05-14 17:29] LABS: Acetaminophen < 5.0 ug/mL (10-30); Alcohol Level < 10 mg/dL (0-10); Salicylate < 0.3 mg/dL (3-10)
== END 2023-05-14 18:50 | disposition home or self-care (01) ==
PROVIDERS: Emergency Provider Emergency Medicine; PCP Family Medicine
DX: R41.82 Altered mental status, unspecified (principal); R56.9 Unspecified convulsions; F17.210 Nicotine dependence, cigarettes, uncomplicated; Z87.820 Personal history of traumatic brain injury
CPT/HCPCS: 70450; 71045; 80053; 80306; 80307; 81025; 85025; 93005; 96372; 99285; 99291; J1630; J2060

== ENCOUNTER 2023-06-14 06:53 | Emergency (ER) | payer MEDICARE, MEDICAID, SELFPAY ==
[2023-06-14 07:00] VITALS: BP 130/80; PULSE 87; RESP 20; TEMP 37; O2SAT 96; BMI 21.6
[2023-06-14] MEDS: LORazepam 2 mg Tablet PO (07:23)
[2023-06-14 07:34] LABS: Basophils % 0.3 %; Eosinophils # 0.1 10^3/uL (0.0-0.8); Eosinophils % 0.6 %; Hematocrit 43.2 % (36-47); Lymphocytes # 1.2 10^3/uL (0.8-4.8); Lymphocytes % 15.5 %; Mean Corpuscular HGB Conc 33.3 g/dL (30-55); Mean Corpuscular Volume 92.9 fl (85-98); Mean Platelet Volume 9.9 fL (7.4-10.4); Monocytes # 0.9 10^3/uL (0.2-0.9); Monocytes % 10.6 %; Neutrophils # 5.83 10^3/uL (1.8-7.7); Neutrophils % 72.9 %; Nucleated Red Blood Cells % 0 %; Platelet Count 326 10^3/cmm (157-399); Red Blood Count 4.65 10^6/uL (3.85-5.65); Red Cell Distribution Width 12.9 % (12.1-15.1)
[2023-06-14 07:44] LABS: Alanine Aminotransferase 19 U/L (0-33); Albumin Level 4.8 g/dL (3.5-5.2); Alkaline Phosphatase 55 U/L (35-105); Anion Gap 12.8 (5-19); Aspartate Amino Transferase 22 U/L (0-32); Blood Urea Nitrogen 8 mg/dL (6-20); Calcium 9.6 mg/dL (8.5-10.5); Carbon Dioxide 23 mmol/L (22-29); Chloride 101 mmol/L (98-107); Globulin 2.9 g/dL (1.3-4.6); Glomerular Filtration Rate 79.9 mL/min (90-130); Glucose 111 mg/dL (65-115); Osmolality Calculated 275 mOsm/kg (285-295); Potassium 3.8 mmol/L (3.5-5.1); Sodium 133 mmol/L (136-145); Total Bilirubin 0.4 mg/dL (0.15-1.2); Total Protein 7.7 g/dL (6.6-8.7)
[2023-06-14 07:46] LABS: Acetaminophen < 5.0 ug/mL (10-30); Alcohol Level < 10 mg/dL (0-10); Salicylate < 0.3 mg/dL (3-10)
--- NOTE | 2023-06-14 08:18 | W.ED.PSYCHS ---
HPI - Psych General: Chief Complaint: Psychiatric Symptoms Stated Complaint: PSYCH EVAL Time Seen by Provider: 06/14/23 07:00 Source: patient Mode of arrival: EMS History of Present Illness: 37-year-old female presents emergency room with severe anxiety. EMS along for some were called to the home where she lives with her mother. Patient tells me that she was very upset because her mother is taken in homeless person. She has had some intimate relationships evidently with this man but does not want him in the home anymore. She is very angry about this. Her and her mother got into a law enforcement was called and later EMS. Patient denies any suicidal homicidal ideation. EMS related to nurses that there had been some veiled comments but nothing overt. Nasal enforcement or EMS are available when I came to see the patient. She is quite anxious pacing but she will converse with me and gives me a relatively good history but repeatedly denies suicidal or homicidal ideation. We have admitted her previously to the [facility]. Patient states she has not taken any of her medications today but has been taking them regularly prior. MD complaint: other (Anxiety) Duration: constant History of same: Yes Relieving factors: none Exacerbating factors: none Associated symptoms: Deny auditory hallucinations, visual hallucinations, homicidal ideation or suicidal ideation Treatments prior to arrival: none Review of Systems Const: Denies: fever(s) or chills Resp: Denies: dyspnea GI: Denies: abdominal pain : Denies: dysuria Musc: Denies: neck pain or back pain Skin/Breast: Denies: pruritus Neuro: Denies: headache(s) Psych: Denies: visual hallucinations, auditory hallucinations, suicidal ideation or homicidal ideation [facility] ED PFSH: Medical History Acute psychosis Cannabis dependence History of traumatic brain injury Patient needs psychiatric hold for evaluation Psychiatric care Psychotic disorder Social History Smoking and tobacco status: current every day smoker Substance/Drug Use: current Physical Exam Const: COMMON NORMALS: no acute distress GENERAL APPEARANCE: cooperative and comfortable ORIENTATION/CONSCIOUSNESS: Yes awake, Yes oriented to person, Yes oriented to place and Yes oriented to time HENMT: COMMON NORMALS: normocephalic, atraumatic and hearing grossly normal bilaterally HEAD & SCALP: normocephalic and atraumatic Resp: COMMON NORMALS: normal respiratory effort, No retractions, No use of accessory muscles and clear to auscultation bilaterally AUSCULTATION: clear to auscultation bilaterally Cardio: COMMON NORMALS: regular rate, regular rhythm and No murmurs present (Cardio) RATE: regular rate RHYTHM: regular rhythm GI: COMMON NORMALS: Soft to palpation and No hepatosplenomegaly present AUSCULTATION: Yes normoactive bowel sounds PALPATION: Yes Soft to palpation, No Tenderness to palpation present (GI), No Guarding due to palpation present (GI) and Yes No hepatosplenomegaly present Extremity: COMMON NORMALS: normal to inspection, capillary refill normal, no clubbing, cyanosis or edema, no calf tenderness and no pedal edema Neuro: SENSORIUM/ORIENTATION: Yes oriented to person, Yes oriented to place and Yes oriented to time Skin: COMMON NORMALS: no rashes or lesions noted GENERAL SKIN EXAM: no rashes or lesions noted Course Vital Signs: Vital signs: Vital Signs Temperature 98.6 F 06/14/23 07:00 Pulse Rate 87 06/14/23 07:00 Respiratory Rate 20 H 06/14/23 07:00 Blood Pressure 130/80 06/14/23 07:00 Pulse Oximetry 96 06/14/23 07:00 Oxygen Delivery Me thod Room Air 06/14/23 07:00 MDM - Psych Medical Decision Making Her mother is listed on her chart but we cannot get a hold of her mother there is no contact information. We contacted [place] [employer] they reported to her head is security that the patient had not made any overt statements about homicidal or suicidal ideation nothing that they felt that they could write an affidavit and would warrant a 96-hour hold. She is not saying to me that I could justify 96-hour hold at this point. She is wanting to leave we did manage to get her to take a single dose of Ativan. She is still quite anxious pacing the room pulling at her hair. However she continues to deny any suicidal homicidal ideation. She wants to leave. I long conversation with her trying to convince her to stay. I am concerned because she tells me if she leaves she will go back to her mother's home where she had the anxiety and anger outburst this morning. Discussed whether that is likely to recur she may end up either having to deal long force me again or returning to the emergency room encouraged her to consider allowing us to admit I do think she would benefit from inpatient psychiatric care. Patient continues to refuse she does not have any issues which I could justify a 96-hour hold on at this point we will have to let her go home. Did encourage her to take her medications give her hydroxyzine to use as needed for anxiety encouraged to follow-up with the crisis stabilization or [facility]. Also advised her if she changed her mind she could return would reevaluate Medical Records I reviewed the patient's medical records. Lab Data I reviewed the patient's lab results. 06/14/23 07:22 06/14/23 07:22 Laboratory Results WBC 8.00 10^3/uL (3.29-11.43) 06/14/23 07: RBC 4.65 10^6/uL (3.85-5.65) 06/14/23 07:22 Hgb 14.40 g/dL (11.27-16.99) 06/14/23 07: Hct 43.2 % (36-47) 06/14/23 07: MCV 92.9 fl (85-98) 06/14/23 07: MCH 31.0 pg (27-33) 06/14/23 07: MCHC 33.3 g/dL (30-55) 06/14/23 07:22 RDW 12.9 % (12.1-15.1) 06/14/23 07: Plt Count 326 10^3/cmm (157-399) 06/14/23 07: MPV 9.9 fL (7.4-10.4) 06/14/23 07: Neut % (Auto) 72.9 % 06/14/23 07: Lymph % (Auto) 15.5 % 06/14/23 07: [place] % (Auto) 10.6 % 06/14/23 07: Eos % (Auto) 0.6 % 06/14/23 07:22 Baso % (Auto) 0.3 % 06/14/23 07: Neut # (Auto) 5.83 10^3/uL (1.8-7.7) 06/14/23 07:22 Lymph # (Auto) 1.2 10^3/uL (0.8-4.8) 06/14/23 07:22 [place] # (Auto) 0.9 10^3/uL (0.2-0.9) 06/14/23 07:22 Eos # (Auto) 0.1 10^3/uL (0.0-0.8) 06/14/23 07:22 Baso # (Auto) 0.0 10^3/uL (0.0-0.1) 06/14/23 07:22 Nucleated RBC % (auto) 0 % 06/14/23 07: Nucleated RBCs # 0.0 /100WBC 06/14/23 07:22 Sodium 133 mmol/L (136-145) L 06/14/23 07:22 Potassium 3.8 mmol/L (3.5-5.1) 06/14/23 07:22 Chloride 101 mmol/L (98-107) 06/14/23 07:22 Carbon Dioxide 23 mmol/L (22-29) 06/14/23 07:22 Anion Gap 12.8 (5-19) 06/14/23 07:22 BUN 8 mg/dL (6-20) 06/14/23 07:22 Creatinine 0.8 mg/dL (0.5-0.9) 06/14/23 07:22 GFR Calculation 79.9 mL/min (90-130) L 06/14/23 07:22 Glucose 111 mg/dL (65-115) 06/14/23 07:22 Calculated Osmolality 275 mOsm/kg (285-295) L 06/14/23 07:22 Calcium 9.6 mg/dL (8.5-10.5) 06/14/23 07:22 Total Bilirubin 0.4 mg/dL (0.15-1.2) 06/14/23 07:22 AST 22 U/L (0-32) 06/14/23 07:22 ALT 19 U/L (0-33) 06/14/23 07:22 Alkaline Phosphatase 55 U/L (35-105) 06/14/23 07:22 Total Protein 7.7 g/dL (6.6-8.7) 06/14/23 07:22 Albumin 4.8 g/dL (3.5-5.2) 06/14/23 07:22 Globulin 2.9 g/dL (1.3-4.6) 06/14/23 07:22 Salicylates < 0.3 mg/dL (3-10) L 06/14/23 07:22 Acetaminophen < 5.0 ug/mL (10-30) L 06/14/23 07:22 Ethyl Alcohol < 10 mg/dL (0-10) 06/14/23 07:22 No radiology studies performed this visit Discharge Plan Discharge Patient Disposition: Home Clinical Impression: Acute anxiety, History of psychosis Condition: Stable Prescriptions: New hydroxyzine HCl 25 mg tablet 25 mg PO Q6H PRN (Reason: anxiety) Qty: 10 0RF No Action fluoxetine 40 mg capsule 40 mg PO QAM Qty: 30 1RF Rx Instructions: Take one capsule by mouth every morning buspirone 15 mg tablet 15 mg PO BID 30 Days Qty: 60 1RF olanzapine 10 mg tablet 10 mg PO BEDTIME 30 Days Qty: 30 1RF metoprolol succinate 25 mg tablet extended release 24 hr 25 mg PO DAILY 30 Days Qty: 30 1RF tizanidine 4 mg tablet 4 mg PO Q6H PRN (Reason: muscle spasticity) Qty: 20 0RF Rx Instructions: do not exceed 3 doses per 24 hrs diclofenac sodium 75 mg tablet,delayed release (DR/EC) 75 mg PO Q12H PRN (Reason: pain) Qty: 20 0RF Discharge Orders: Discharge ED (Routine); Ordered 06/14/23 Ordered By: Riaz Marquez Referrals: Prachi Chandra DO [Primary Care Provider] - Discharge Diet: Usual diet Discharge Activity: Resume usual activity Patient Instructions: Anxiety (ED), Opioid Safety, Pain Management Coding Level of Care Code ED Him Analyst for Liz Jimenez
== END 2023-06-14 08:10 | disposition home or self-care (01) ==
PROVIDERS: Emergency Provider Family Medicine; PCP Family Medicine
DX: F41.9 Anxiety disorder, unspecified (principal); F17.210 Nicotine dependence, cigarettes, uncomplicated
CPT/HCPCS: 80053; 80307; 85025; 99283

== ENCOUNTER 2023-07-06 11:46 | Emergency (ER) | payer MEDICARE, MEDICAID, SELFPAY ==
[2023-07-06 11:48] VITALS: BMI 21.6
[2023-07-06 11:52] VITALS: BP 121/84; PULSE 92; RESP 16; TEMP 36.6; O2SAT 97
--- NOTE | 2023-07-06 11:55 | ED.C_ITS ---
HPI - Psych General: Chief Complaint: Psychiatric Symptoms Stated Complaint: 96 hr hold Time Seen by Provider: 07/06/23 11:46 Source: patient Mode of arrival: other (Law enforcement) History of Present Illness: 37-year-old female presents emergency room in custody of [facility] department she is on a 96-hour hold. We have seen her once before there are some issues with her being upset with some and is living in the home with her mother. Evidently she has been threatening to get a gun and kill this person because she does not want him in her home is in her mother's home. Filled out affidavit paperwork to have her evaluated. She has a history of mental health issues she is supposed to be on olanzapine fluoxetine buspirone according to the family member she has not been taking them. When I reviewed the history asked if she knew why she was here she would become extremely aggravated having to even describe some the circumstances she did corroborate what was put forth in the affidavits. She does not have a firearm or access to 1 at this time but wants to get 1 because she states she feels threatened by the presence of this person in the house that she is staying in. Relieving factors: none Exacerbating factors: none Context: not taking psychiatric medications (Per mother's claim) Associated symptoms: Reports homicidal ideation; Deny auditory hallucinations, visual hallucinations, delusions, depression, suicidal ideation or racing thoughts Treatments prior to arrival: placed on mental health hold Review of Systems Const: Denies: fever(s) or chills Card: Denies: chest pain Resp: Denies: dyspnea GI: Denies: abdominal pain : Denies: dysuria, urinary frequency or urinary urgency Musc: Denies: neck pain or back pain Skin/Breast: Denies: rash Psych: Reports: homicidal ideation; Denies: depression, visual hallucinations, auditory hallucinations or suicidal ideation PFS ED PFSH: Medical History Acute psychosis Cannabis dependence History of traumatic brain injury Patient needs psychiatric hold for evaluation Psychiatric care Psychotic disorder Social History Smoking and tobacco/nicotine status: current every day tobacco/nicotine user Substance/Drug Use: current Physical Exam Const: GENERAL APPEARANCE: cooperative and comfortable ORIENTATION/CONSCIOUSNESS: Yes awake HENMT: COMMON NORMALS: normocephalic, atraumatic and hearing grossly normal bilaterally HEAD & SCALP: normocephalic and atraumatic Resp: COMMON NORMALS: normal respiratory effort, No retractions, No use of accessory muscles and clear to auscultation bilaterally AUSCULTATION: clear to auscultation bilaterally Cardio: COMMON NORMALS: regular rate, regular rhythm and No murmurs present (Cardio) RATE: regular rate RHYTHM: regular rhythm GI: COMMON NORMALS: Soft to palpation and No hepatosplenomegaly present AUSCULTATION: Yes normoactive bowel sounds PALPATION: Yes Soft to palpation, No Tenderness to palpation present (GI), No Guarding due to palpation present (GI) and Yes No hepatosplenomegaly present Extremity: COMMON NORMALS: normal to inspection, capillary refill normal, no clubbing, cyanosis or edema, no calf tenderness and no pedal edema Psych: THOUGHT CONTENT: No delusions Skin: COMMON NORMALS: no rashes or lesions noted GENERAL SKIN EXAM: no rash es or lesions noted Course Vital Signs: Vital signs: Vital Signs Temperature 97.9 F 07/06/23 11:52 Pulse Rate 92 07/06/23 11:52 Respiratory Rate 16 07/06/23 11:52 Blood Pressure 121/84 07/06/23 11:52 Pulse Oximetry 97 07/06/23 11:52 MDM - Psych Medical Decision Making Patient is Easily aggravated but also just is easily redirected and able she is expressing intent to get a firearm and harm someone else. We will look for inpatient placement. Uncertain if there are any beds available at our facility she may need to be transferred. [facility]patient [facility] has agreed to accept the patient on transfer be transferred by Yinka Grace on 96-hour hold Medical Records I reviewed the patient's medical records. Lab Data I reviewed the patient's lab results. 07/06/23 12:40 07/06/23 12:40 Laboratory Results WBC 5.97 10^3/uL (3.29-11.43) 07/06/23 12:40 RBC 4.24 10^6/uL (3.85-5.65) 07/06/23 12:40 Hgb 13.00 g/dL (11.27-16.99) 07/06/23 12:40 Hct 40.7 % (36-47) 07/06/23 12:40 MCV 96.0 fl (85-98) 07/06/23 12:40 MCH 30.7 pg (27-33) 07/06/23 12:40 MCHC 31.9 g/dL (30-55) 07/06/23 12:40 RDW 13.2 % (12.1-15.1) 07/06/23 12:40 Plt Count 327 10^3/cmm (157-399) 07/06/23 12:40 MPV 9.7 fL (7.4-10.4) 07/06/23 12:40 Neut % (Auto) 58.3 % 07/06/23 12:40 Lymph % (Auto) 32.0 % 07/06/23 12:40 [place] % (Auto) 7.5 % 07/06/23 12:40 Eos % (Auto) 1.2 % 07/06/23 12:40 Baso % (Auto) 0.8 % 07/06/23 12:40 Neut # (Auto) 3.48 10^3/uL (1.8-7.7) 07/06/23 12:40 Lymph # (Auto) 1.9 10^3/uL (0.8-4.8) 07/06/23 12:40 [place] # (Auto) 0.5 10^3/uL (0.2-0.9) 07/06/23 12:40 Eos # (Auto) 0.1 10^3/uL (0.0-0.8) 07/06/23 12:40 Baso # (Auto) 0.1 10^3/uL (0.0-0.1) 07/06/23 12:40 Nucleated RBC % (auto) 0 % 07/06/23 12:40 Nucleated RBCs # 0.0 /100WBC 07/06/23 12:40 Sodium 142 mmol/L (136-145) 07/06/23 12:40 Potassium 5.0 mmol/L (3.5-5.1) 07/06/23 12:40 Chloride 107 mmol/L (98-107) 07/06/23 12:40 Carbon Dioxide 25 mmol/L (22-29) 07/06/23 12:40 Anion Gap 15.0 (5-19) 07/06/23 12:40 BUN 6 mg/dL (6-20) 07/06/23 12:40 Creatinine 0.7 mg/dL (0.5-0.9) 07/06/23 12:40 GFR Calculation 93.2 mL/min (90-130) 07/06/23 12:40 Glucose 105 mg/dL (65-115) 07/06/23 12:40 Calculated Osmolality 292 mOsm/kg (285-295) 07/06/23 12:40 Calcium 9.4 mg/dL (8.5-10.5) 07/06/23 12:40 Total Bilirubin 0.2 mg/dL (0.15-1.2) 07/06/23 12:40 AST 18 U/L (0-32) 07/06/23 12:40 ALT 17 U/L (0-33) 07/06/23 12:40 Alkaline Phosphatase 54 U/L (35-105) 07/06/23 12:40 Total Protein 7.1 g/dL (6.6-8.7) 07/06/23 12:40 Albumin 4.7 g/dL (3.5-5.2) 07/06/23 12:40 Globulin 2.4 g/dL (1.3-4.6) 07/06/23 12:40 HCG, Qual Negative (Negative) 07/06/23 12:40 Urine Color Yellow (Yellow) 07/06/23 12:38 Urine Appearance Clear (CLEAR) 07/06/23 12:38 Urine pH 5 (5-7) 07/06/23 12:38 Ur Specific [place] 1.025 (1.005-1.030) 07/06/23 12:38 Urine Protein Neg (Negative) 07/06/23 12:38 Urine Glucose (UA) Norm (Normal) 07/06/23 12:38 Urine Ketones 1+ (Negative) H 07/06/23 12:38 Urine Blood Neg (Negative) 07/06/23 12:38 Urine Nitrate Negative (Negative) 07/06/23 12:38 Urine Bilirubin Neg (Negative) 07/06/23 12:38 Urine Urobilinogen Neg mg/dL (Negative) 07/06/23 12:38 Ur Leukocyte Esterase Negative (Negative) 07/06/23 12:38 Salicylates 0.7 mg/dL (3-10) L 07/06/23 12:40 Urine Opiates Screen Negative ng/mL (Negative) 07/06/23 12:38 Acetaminophen < 5.0 ug/mL (10-30) L 07/06/23 12:40 Ur Barbiturates Screen Negative ng/mL (Negative) 07/06/23 12:38 Ur Phencyclidine Scrn Negative ng/mL (Negative) 07/06/23 12:38 Ur Amphetamines Screen Negative ng/mL (Negative) 07/06/23 12:38 U Benzodiazepines Scrn Positive ng/mL (Negative) H 07/06/23 12:38 Urine Cocaine Screen Negative ng/mL (Negative) 07/06/23 12:38 U Marijuana (THC) Screen Positive ng/mL (Negative) H 07/06/23 12:38 Ethyl Alcohol < 10 mg/dL (0-10) 07/06/23 12:40 Coronavirus 229E (PCR) Not detected (NOT DETECT) 07/06/23 12:52 SARS-CoV-2 (PCR) Not detected (NOT DETECT) 07/06/23 12:52 SARS-CoV-2 Ag (Rapid) Cancelled 07/06/23 12:52 No radiology studies performed this visit Discharge Plan Discharge Patient Disposition: Xfer Psychiatric Hosp Clinical Impression: Psychotic disorder, Traumatic brain injury, Homicidal ideations Condition: Stable Referrals: Prachi Chandra DO [Primary Care Provider] - Coding Level of Care Code ED Lost Charge Card Clerk for Liz Jimenez
[2023-07-06 12:48] LABS: Basophils # 0.1 10^3/uL (0.0-0.1); Basophils % 0.8 %; Eosinophils # 0.1 10^3/uL (0.0-0.8); Eosinophils % 1.2 %; Hematocrit 40.7 % (36-47); Lymphocytes # 1.9 10^3/uL (0.8-4.8); Mean Corpuscular HGB Conc 31.9 g/dL (30-55); Mean Corpuscular Hemoglobin 30.7 pg (27-33); Mean Platelet Volume 9.7 fL (7.4-10.4); Monocytes # 0.5 10^3/uL (0.2-0.9); Monocytes % 7.5 %; Neutrophils # 3.48 10^3/uL (1.8-7.7); Neutrophils % 58.3 %; Nucleated Red Blood Cells % 0 %; Platelet Count 327 10^3/cmm (157-399); Red Blood Count 4.24 10^6/uL (3.85-5.65); Red Cell Distribution Width 13.2 % (12.1-15.1); White Blood Count 5.97 10^3/uL (3.29-11.43)
[2023-07-06 12:51] LABS: Add Urine Microscopic? NO; Charge for UA Resulting for Rev
[2023-07-06 13:01] LABS: Urine Appearance Clear (CLEAR); Urine Color Yellow (Yellow)
[2023-07-06 13:02] LABS: Amphetamines Screen Urine Negative (Negative); Barbiturates Screen Urine Negative (Negative); Benzodiazepines Screen Urine Positive (Negative); Bilirubin Urine Neg (Negative); Blood Urine Neg (Negative); Cocaine Screen Urine Negative (Negative); Glucose Urine UA Norm (Normal); Ketones Urine 1+ (Negative); Leukocyte Esterase Urine Negative (Negative); Nitrate Urine Negative (Negative); Opiate Screen Urine Negative (Negative); PCP Screen Urine Negative (Negative); Protein Urine Neg (Negative); Specific Gravity, Urine 1.025 (1.005-1.030); THC Screen Urine Positive (Negative); Urobilinogen Urine Neg (Negative); pH Urine 5 (5-7)
[2023-07-06 13:03] LABS: HCG, Serum Qual Negative (Negative)
[2023-07-06 13:08] LABS: Alanine Aminotransferase 17 U/L (0-33); Albumin Level 4.7 g/dL (3.5-5.2); Alkaline Phosphatase 54 U/L (35-105); Aspartate Amino Transferase 18 U/L (0-32); Blood Urea Nitrogen 6 mg/dL (6-20); Calcium 9.4 mg/dL (8.5-10.5); Carbon Dioxide 25 mmol/L (22-29); Chloride 107 mmol/L (98-107); Creatinine Clr Calc Pharmacy 98.4325; Globulin 2.4 g/dL (1.3-4.6); Glomerular Filtration Rate 93.2 mL/min (90-130); Glucose 105 mg/dL (65-115); Osmolality Calculated 292 mOsm/kg (285-295); Salicylate 0.7 mg/dL (3-10); Sodium 142 mmol/L (136-145); Total Bilirubin 0.2 mg/dL (0.15-1.2); Total Protein 7.1 g/dL (6.6-8.7)
[2023-07-06 13:09] LABS: Acetaminophen < 5.0 ug/mL (10-30); Alcohol Level < 10 mg/dL (0-10)
[2023-07-06 15:26] LABS: Adenovirus Not Detected (NOT DETECT); Chlamydia Pneumoniae Not Detected (NOT DETECT); Coronavirus 229E,HKU1,NL63,OC4 Not Detected (NOT DETECT); Human Metapneumovirus Not Detected (NOT DETECT); Human Rhinovirus/Enterovirus Not Detected (NOT DETECT); Influenza A Not Detected (NOT DETECT); Influenza A H1 Not Detected (NOT DETECT); Influenza A H1-2009 Not Detected (NOT DETECT); Influenza A H3 Not Detected (NOT DETECT); Influenza B Not Detected (NOT DETECT); Mycoplasma Pneumoniae Not Detected (NOT DETECT); Parainfluenza Virus Type 1 Not Detected (NOT DETECT); Parainfluenza Virus Type 2 Not Detected (NOT DETECT); Parainfluenza Virus Type 3 Not Detected (NOT DETECT); Parainfluenza Virus Type 4 Not Detected (NOT DETECT); Respiratory Syncytial Virus A Not Detected (NOT DETECT); Respiratory Syncytial Virus B Not Detected (NOT DETECT); SARS-COV-2 Not Detected (NOT DETECT)
== END 2023-07-06 18:54 ==
PROVIDERS: Emergency Provider Family Medicine; PCP Family Medicine
DX: F23 Brief psychotic disorder (principal); R45.850 Homicidal ideations; Z87.820 Personal history of traumatic brain injury; Z72.0 Tobacco use; Z11.52 Encounter for screening for COVID-19
CPT/HCPCS: 36415; 80053; 80306; 80307; 81003; 84703; 85025; 87635; 99285

== ENCOUNTER 2023-07-22 12:06 | Emergency (ER) | payer MEDICARE, MEDICAID, SELFPAY ==
[2023-07-22 12:08] VITALS: BP 113/83; PULSE 87; RESP 18; TEMP 37.1; O2SAT 97; BMI 21.6
--- NOTE | 2023-07-22 12:19 | ED_ITS ---
HPI - Seizure General: Chief Complaint: Seizure Stated Complaint: seizure Time Seen by Provider: 07/22/23 12:08 History of Present Illness: HPI Narrative: Patient arrived to the ER via EMS for seizure-like activity. Patient's mother witnessed the seizure and stated she will had it for about 3 minutes. Patient does have a history of TBI. Patient did hit her head on the floor but was supposedly conscious and alert throughout the entire procedure. Patient has no complaints at this time. Patient states she has had 3 seizures in the last several months but is on no antiseizure medication. Review of Systems General: Reports: 10 or more systems reviewed and unremarkable except in HPI and below PFSH ED PFSH: Medical History Acute psychosis Cannabis dependence History of traumatic brain injury Patient needs psychiatric hold for evaluation Psychiatric care Psychotic disorder Social History Smoking and tobacco/nicotine status: current every day tobacco/nicotine user Substance/Drug Use: current Physical Exam Const: COMMON NORMALS: no acute distress, average body habitus, patient oriented x3, no limitations, healthy appearing, alert and well nourished HENMT: COMMON NORMALS: normocephalic, atraumatic, hearing grossly normal bilaterally, external ears normal, Normal external nose present, moist oral mucous membranes and oropharynx normal HEAD & SCALP: normocephalic and atraumatic NOSE: Normal external nose present EXTERNAL EAR: Yes external ears normal Eye: COMMON NORMALS: Equal, round and reactive pupils present, EOMs intact bilaterally, conjunctivae normal and no scleral icterus CONJUNCTIVA: Yes conjunctivae normal PUPIL: Yes Equal, round and reactive pupils present Neck/C-Spine: COMMON NORMALS: full ROM, no lymphadenopathy, supple, no mening eal signs, no JVD and Thyroid normal THYROID: Thyroid normal Chest: COMMONS NORMALS: normal inspection of the chest and normal palpation of entire chest wall Resp: COMMON NORMALS: normal respiratory effort, No retractions, No use of accessory muscles and clear to auscultation bilaterally AUSCULTATION: clear to auscultation bilaterally Cardio: COMMON NORMALS: no JVD, regular rate, regular rhythm, S1 normal heart sound present, S2 normal heart sound present, No gallops present (Cardio), No clicks present (Cardio), No murmurs present (Cardio) and No rub (Cardio) RAT E: regular rate RHYTHM: regular rhythm HEART SOUNDS: S1 normal heart sound present and S2 normal heart sound present GI: COMMON NORMALS: Normal to inspection, nondistended, normoactive bowel sounds present, Soft to palpation, non-tender, No hepatosplenomegaly present and no masses PALPATION: Yes Soft to palpation and Yes No hepatosplenomegaly present : COMMON NORMALS: Yes no CVA tenderness BLADDER/KIDNEY EXAM: Yes no CVA tenderness Back/Pelvis: COMMON NORMALS: no CVA tenderness Neuro: COMMON NORMALS: patient oriented x3 SENSORIUM/ORIENTATION: Yes alert MENINGEAL SIGNS: Yes no meningeal signs Course Vital Signs: Vital signs: Vital Signs Temperature 98.7 F 07/22/23 12:08 Pulse Rate 87 07/22/23 12:08 Respiratory Rate 18 07/22/23 12:08 Blood Pressure 113/83 07/22/23 12:08 Pulse Oximetry 97 07/22/23 12:08 Oxygen Delivery Me thod Room Air 07/22/23 12:08 MDM - Seizure MDM Narrative Medical decision making narrative: Patient presents to the ER with witnessed seizure-like activity, lab work was obtained as well as CT scan. All of which was essentially unremarkable except noted THC in the patient's urine. Patient be discharged home to follow-up with her PCP within the next 7 days or as needed. Differential Diagnosis Seizure Differential Diagnosis: Likely epileptic seizure; Unlikely intractable seizure disorder, febrile convulsion, focal seizure, generalized seizure, new onset seizure or status epilepticus Medical Records Attestation: I reviewed the patient's medical records. Lab Data Attestation: I reviewed the patient's lab results. 07/22/23 13:25 07/22/23 13:25 Labs: Laboratory Results WBC 9.70 10^3/uL (3.29-11.43) 07/22/23 13:25 RBC 4.17 10^6/uL (3.85-5.65) 07/22/23 13:25 Hgb 12.90 g/dL (11.27-16.99) 07/22/23 13:25 Hct 40.0 % (36-47) 07/22/23 13:25 MCV 95.9 fl (85-98) 07/22/23 13:25 MCH 30.9 pg (27-33) 07/22/23 13:25 MCHC 32.3 g/dL (30-55) 07/22/23 13:25 RDW 13.9 % (12.1-15.1) 07/22/23 13:25 Plt Count 292 10^3/cmm (157-399) 07/22/23 13:25 MPV 9.9 fL (7.4-10.4) 07/22/23 13:25 Neut % (Auto) 78.7 % 07/22/23 13:25 Lymph % (Auto) 14.3 % 07/22/23 13:25 [place] % (Auto) 5.3 % 07/22/23 13:25 Eos % (Auto) 0.9 % 07/22/23 13:25 Baso % (Auto) 0.5 % 07/22/23 13:25 Neut # (Auto) 7.63 10^3/uL (1.8-7.7) 07/22/23 13:25 Lymph # (Auto) 1.4 10^3/uL (0.8-4.8) 07/22/23 13:25 [place] # (Auto) 0.5 10^3/uL (0.2-0.9) 07/22/23 13:25 Eos # (Auto) 0.1 10^3/uL (0.0-0.8) 07/22/23 13:25 Baso # (Auto) 0.1 10^3/uL (0.0-0.1) 07/22/23 13:25 Nucleated RBC % (auto) 0 % 07/22/23 13:25 Nucleated RBCs # 0.0 /100WBC 07/22/23 13:25 Sodium 139 mmol/L (136-145) 07/22/23 13:25 Potassium 3.9 mmol/L (3.5-5.1) 07/22/23 13:25 Chloride 105 mmol/L (98-107) 07/22/23 13:25 Carbon Dioxide 22 mmol/L (22-29) 07/22/23 13:25 Anion Gap 15.9 (5-19) 07/22/23 13:25 BUN 8 mg/dL (6-20) 07/22/23 13:25 Creatinine 0.7 mg/dL (0.5-0.9) 07/22/23 13:25 GFR Calculation 92.7 mL/min (90-130) 07/22/23 13:25 Glucose 96 mg/dL (65-115) 07/22/23 13:25 Calculated Osmolality 286 mOsm/kg (285-295) 07/22/23 13:25 Calcium 9.0 mg/dL (8.5-10.5) 07/22/23 13:25 Magnesium 2.2 mg/dL (1.7-2.3) 07/22/23 13:25 Total Bilirubin 0.2 mg/dL (0.15-1.2) 07/22/23 13:25 AST 19 U/L (0-32) 07/22/23 13:25 ALT 16 U/L (0-33) 07/22/23 13:25 Alkaline Phosphatase 57 U/L (35-105) 07/22/23 13:25 Total Protein 7.0 g/dL (6.6-8.7) 07/22/23 13:25 Albumin 4.3 g/dL (3.5-5.2) 07/22/23 13:25 Globulin 2.7 g/dL (1.3-4.6) 07/22/23 13:25 Urine Color Yellow (Yellow) 07/22/23 12:21 Urine Appearance Clear (CLEAR) 07/22/23 12:21 Urine pH 6 (5-7) 07/22/23 12:21 Ur Specific [place] 1.005 (1.005-1.030) 07/22/23 12:21 Urine Protein Neg (Negative) 07/22/23 12:21 Urine Glucose (UA) Norm (Normal) 07/22/23 12:21 Urine Ketones Negative (Negative) 07/22/23 12:21 Urine Blood Neg (Negative) 07/22/23 12:21 Urine Nitrate Negative (Negative) 07/22/23 12:21 Urine Bilirubin Neg (Negative) 07/22/23 12:21 Urine Urobilinogen Norm mg/dL (Negative) 07/22/23 12:21 Ur Leukocyte Esterase Negative (Negative) 07/22/23 12:21 Urine Opiates Screen Negative ng/mL (Negative) 07/22/23 12:21 Ur Barbiturates Screen Negative ng/mL (Negative) 07/22/23 12:21 Ur Phencyclidine Scrn Negative ng/mL (Negative) 07/22/23 12:21 Ur Amphetamines Screen Negative ng/mL (Negative) 07/22/23 12:21 U Benzodiazepines Scrn Negative ng/mL (Negative) 07/22/23 12:21 Urine Cocaine Screen Negative ng/mL (Negative) 07/22/23 12:21 U Marijuana (THC) Screen Positive ng/mL (Negative) H 07/22/23 12:21 All radiology interpretation(s) finalized by discharge EKG Data EKG 1: Attestation: I personally reviewed and interpreted this EKG as follows: EKG interpretation date: 07/22/23 EKG interpretation time: 12:23 Prior EKG tracings: not available for review Interpretation: EKG showed ventricular rate 77 beats a minute, TX interval 130, QRS duration 85, QTc of 400, sinus rhythm, no ST-T wave changes Discharge Plan Discharge Patient Disposition: Home Clinical Impression: Seizure-like activity Condition: Stable Prescriptions: No Action fluoxetine 40 mg capsule 40 mg PO QAM Qty: 30 1RF olanzapine 10 mg tablet 10 mg PO BEDTIME 30 Days Qty: 30 1RF metoprolol succinate 25 mg tablet extended release 24 hr 25 mg PO DAILY 30 Days Qty: 30 1RF medroxyprogesterone 150 mg/mL syringe 150 mg IM Q90D Discharge Orders: Discharge ED (Routine); Ordered 07/22/23 Ordered By: Dagoberto Potts Referrals: Prachi Chandra DO [Primary Care Provider] - Patient Instructions: Seizures Activity Restrictions/Additional Instructions: Please follow-up with your family practice physician within the next 7 days for further evaluation and treatment. Coding Level of Care Code ED Motor Vehicle Examiner for Liz Jimenez
--- NOTE | 2023-07-22 12:19 | CT_ITS ---
WS: [id number] CT HEAD TECHNIQUE: Noncontrast CT of the head obtained from the skullbase to the vertex. CLINICAL INFORMATION: seizure COMPARISON: CT 05/14/2023 DLP: 1250.[address] scans at [facility] use at least one of these dose optimization techniques: automated e xposure control; mA and/or kV adjustment per patient size (includes targeted exams where dose is matc hed to clinical indication); or iterative reconstruction. FINDINGS: No evidence of intracranial hemorrhage or mass effect. Ventricular system and basal cisterns are calvert nt. Chronic encephalomalacia RIGHT frontal lobe likely due to prior ischemia. This is unchanged from previous. Chronic atrophy of the vermis unchanged. No extra-axial fluid collections. No evidence of mass or mass effect. Normal brumfield-white differentiati on. Paranasal sinuses and mastoid air cells are well aerated. Normal visualized soft tissues. IMPRESSION: 1. No evidence of intracranial hemorrhage or mass effect. 2. 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 3. No acute intracranial findings.
--- NOTE | 2023-07-22 12:23 | ECG_ITS ---
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 [id number]
[2023-07-22 12:40] LABS: Add Urine Microscopic? NO; Charge for UA Resulting for Rev
[2023-07-22 12:56] LABS: Bilirubin Urine Neg (Negative); Blood Urine Neg (Negative); Glucose Urine UA Norm (Normal); Ketones Urine Negative (Negative); Leukocyte Esterase Urine Negative (Negative); Nitrate Urine Negative (Negative); Protein Urine Neg (Negative); Specific Gravity, Urine 1.005 (1.005-1.030); Urine Appearance Clear (CLEAR); Urine Color Yellow (Yellow); Urobilinogen Urine Norm (Negative); pH Urine 6 (5-7)
[2023-07-22 13:03] LABS: Amphetamines Screen Urine Negative (Negative); Barbiturates Screen Urine Negative (Negative); Benzodiazepines Screen Urine Negative (Negative); Cocaine Screen Urine Negative (Negative); Opiate Screen Urine Negative (Negative); PCP Screen Urine Negative (Negative); THC Screen Urine Positive (Negative)
[2023-07-22 13:39] LABS: Basophils # 0.1 10^3/uL (0.0-0.1); Basophils % 0.5 %; Eosinophils # 0.1 10^3/uL (0.0-0.8); Eosinophils % 0.9 %; Lymphocytes # 1.4 10^3/uL (0.8-4.8); Lymphocytes % 14.3 %; Mean Corpuscular HGB Conc 32.3 g/dL (30-55); Mean Corpuscular Hemoglobin 30.9 pg (27-33); Mean Corpuscular Volume 95.9 fl (85-98); Mean Platelet Volume 9.9 fL (7.4-10.4); Monocytes # 0.5 10^3/uL (0.2-0.9); Monocytes % 5.3 %; Neutrophils # 7.63 10^3/uL (1.8-7.7); Neutrophils % 78.7 %; Nucleated Red Blood Cells % 0 %; Platelet Count 292 10^3/cmm (157-399); Red Blood Count 4.17 10^6/uL (3.85-5.65); Red Cell Distribution Width 13.9 % (12.1-15.1)
[2023-07-22 13:56] LABS: Alanine Aminotransferase 16 U/L (0-33); Albumin Level 4.3 g/dL (3.5-5.2); Alkaline Phosphatase 57 U/L (35-105); Anion Gap 15.9 (5-19); Aspartate Amino Transferase 19 U/L (0-32); Blood Urea Nitrogen 8 mg/dL (6-20); Carbon Dioxide 22 mmol/L (22-29); Chloride 105 mmol/L (98-107); Creatinine Clr Calc Pharmacy 97.4579; Globulin 2.7 g/dL (1.3-4.6); Glomerular Filtration Rate 92.7 mL/min (90-130); Glucose 96 mg/dL (65-115); Magnesium 2.2 mg/dL (1.7-2.3); Osmolality Calculated 286 mOsm/kg (285-295); Potassium 3.9 mmol/L (3.5-5.1); Sodium 139 mmol/L (136-145); Total Bilirubin 0.2 mg/dL (0.15-1.2)
== END 2023-07-22 14:22 | disposition home or self-care (01) ==
PROVIDERS: Emergency Provider Emergency Medicine; PCP Family Medicine
DX: R56.9 Unspecified convulsions (principal); Z87.820 Personal history of traumatic brain injury; Z72.0 Tobacco use
CPT/HCPCS: 36415; 70450; 80053; 80306; 81003; 83735; 84146; 85025; 93005; 99285

== ENCOUNTER → 2023-08-18 11:49 | Outpatient (BNVA) | payer MEDICARE, MEDICAID, SELFPAY | PROVIDERS: PCP Family Medicine; Visit Provider Nurse Practitioner Psychiatric/Mental Health | DX: Z03.89 Encounter for observation for other suspected diseases and conditions ruled out (principal); Z79.899 Other long term (current) drug therapy | CPT/HCPCS: 80061; 80306; 83036 ==

== ENCOUNTER 2023-11-09 10:06 | Outpatient (CLI) | payer MEDICARE, MEDICAID, SELFPAY ==
--- NOTE | 2023-11-09 10:12 | MM_ITS ---
WS: [id number] SCREENING DIGITAL TOMOSYNTHESIS MAMMOGRAM WITH CAD HISTORY: SCREENING COMPARISON: None available. Bilateral CC and MLO with tomosynthesis views submitted. Synthetic mammography reviewed. Computer aid ed detection analyzed. Breast composition: The breasts are heterogeneously dense, which may obscure small masses. No suspici ous masses, microcalcifications or architectural distortion. IMPRESSION: MM/[place] [id number] BI-RADS: 1-Negative FOLLOW UP: 1 Year Follow-up
== END 2023-11-09 10:07 | disposition home or self-care (01) ==
LOC: RAD 10:09
PROVIDERS: PCP Family Medicine; Visit Provider Family Medicine
DX: Z12.31 Encounter for screening mammogram for malignant neoplasm of breast (principal)
CPT/HCPCS: 77063; 77067

== ENCOUNTER → 2024-08-16 11:17 | Outpatient (BNVA) | payer MEDICARE, SELFPAY | PROVIDERS: PCP Family Medicine; Visit Provider Nurse Practitioner Psychiatric/Mental Health | DX: Z79.899 Other long term (current) drug therapy (principal) | CPT/HCPCS: 80053; 80061; 83036 ==

== ENCOUNTER 2024-11-07 10:40 | Outpatient (CLI) | payer MEDICARE, SELFPAY ==
[2024-09-09 11:09] VITALS: BP 113/79; BMI 22.0
--- NOTE | 2024-11-07 10:48 | XR_ITS ---
WS: [id number] XR chest 2V* [id number] REASON FOR EXAM: WHEEZING FINDINGS: The heart and the mediastinum are within normal limits. Calcified granulomatous disease bilaterally. No acute pulmonary parenchymal or pleural abnormality. Bony thorax intact without significant abnormality. Chest is stable compared to 05/14/2023. XR/XR chest 2V* [id number] IMPRESSION: Stable chest without acute abnormality.
== END 2024-11-07 10:41 | disposition home or self-care (01) ==
PROVIDERS: PCP Family Medicine; Visit Provider Family Medicine
DX: R06.2 Wheezing (principal); R91.8 Other nonspecific abnormal finding of lung field
CPT/HCPCS: 71046

== ENCOUNTER 2025-06-29 08:21 | Emergency (ER) | payer MEDICARE, MEDICAID, SELFPAY ==
[2024-09-09 11:09] VITALS: BP 113/79; BMI 22.0
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
[2025-06-29 08:36] VITALS: BP 119/90; PULSE 88; RESP 18; TEMP 36.8; O2SAT 99; BMI 20.9
[2025-06-29] MEDS: tetanus-dipt-pertussis 0.5 mL SDV IM (08:59)
--- NOTE | 2025-06-29 09:59 | W.ED.WOUNDLC ---
HPI - Wound/Laceration General: Chief Complaint: Wound/Laceration Stated Complaint: Lac LT middle finger Time Seen by Provider: 06/29/25 08:37 History of Present Illness: 39-year-old female presents emergency room left third finger laceration laterally. No active bleeding she lacerated it last night she came in this morning's been over 12 hours since she initially cut it. Unsure of last tetanus. Related Data Home Medications ?Medication ?Instructions ?Recorded ?Confirmed albuterol sulfate 90 mcg/actuation 2 puff inhalation Q4H PRN 02/13/25 06/12/25 aerosol inhaler (Ventolin HFA) medroxyprogesterone 150 mg/mL 150 mg IM Q90D 02/13/25 06/12/25 intramuscular suspension metoprolol succinate 25 mg 25 mg PO DAILY 02/13/25 06/12/25 tablet,extended release 24 hr Previous Rx's ?Medication ?Instructions ?Recorded aripiprazole 10 mg tablet 10 mg PO .q hs #30 tabs 06/12/25 cephalexin 250 mg/5 mL oral 500 mg (10 mL) PO TID #200 mL 06/29/25 suspension Allergies Allergy/AdvReac Type Severity Reaction Status Date / Time amoxicillin Allergy ALGY-Rash Verified 06/12/25 12:47 codeine Allergy ADR-Itching Verified 06/12/25 12:47 Milk Containing Products Allergy ADR-Vomitin Verified 06/12/25 12:47 (Dairy) g Penicillins Allergy ALGY-Rash Verified 06/12/25 12:47 olanzapine AdvReac Unknown seizure Verified 06/12/25 12:47 [facility] ED PFSH: Medical History Nonadherence to medication Cannabis dependence Psychotic disorder Psychiatric care History of traumatic brain injury Patient needs psychiatric hold for evaluation Acute psychosis Family History Other Depression Social History Smoking and tobacco/nicotine status: heavy tobacco/nicotine user cigarettes Packs smoked per day: 1 Years cigarettes smoked: 2 Quit status (tobacco/nicotine): considering quitting Second hand smoke exposure: Yes Alcohol intake: current Substance/Drug Use: current Substance/Drug use frequency: daily Other substance/drug use details: when she can afford it Adopted: No Caregiver/support person: No Lives independently: Yes Household members: family and other Housing: Manufactured/Mobile home Marital status: Number of children: 1 Number of grandchildren: 0 Highest education level completed: Some College, No Degree service: No Current occupational status: disabled Pets and animals: No Leisure activites: other Leisure activities details: walking Sexually active: No Do you think of yourself as: Straight/Heterosexual Current gender identity: Female Mitra/Temple: Druze Special mitra needs: No Agree to transfusion: Yes Course Vital Signs: Vital signs: Vital Signs Temperature 98.3 F 06/29/25 08:36 Pulse Rate 88 06/29/25 08:36 Respiratory Rate 18 06/29/25 08:36 Blood Pressure 119/90 06/29/25 08:36 Pulse Oximetry 99 06/29/25 08:36 Oxygen Delivery Me thod Room Air 06/29/25 08:36 MDM - Wound/Laceration Medical Decision Making Laceration is greater than 12 hours old. The edges are already somewhat macerated. I do not believe she would benefit from sutures likely would pull through the tissue at this point. Also given the length of time it is likely also colonized with Steri-Stripped keep edges somewhat approximated. Short course of antibiotics tetanus was updated No radiology studies performed this visit Discharge Plan Discharge Patient Disposition: Home Clinical Impression: Laceration Condition: Stable Prescriptions: New cephalexin 250 mg/5 mL suspension for reconstitution 500 mg PO TID Qty: 200 0RF No Action metoprolol succinate 25 mg tablet extended release 24 hr 25 mg PO DAILY albuterol sulfate [Ventolin HFA] 90 mcg/actuation HFA aerosol inhaler 2 puff inhalation Q4H PRN medroxyprogesterone 150 mg/mL suspension 150 mg IM Q90D aripiprazole 10 mg tablet 10 mg PO .q hs Qty: 30 2RF Rx Instructions: Take one tablet daily at bedtime Discharge Orders: Discharge ED (Routine); Ordered 06/29/25 Ordered By: Riaz Marquez Referrals: Prachi Chandra DO [Primary Care Provider, PHOSPHORUS PROCESSING SUPERVISOR] Discharge Diet: Usual diet Discharge Activity: Increase activity as tolerated Patient Instructions: Opioid Safety, Pain Management, Patient Portal & Chandan Instructions Activity Restrictions/Additional Instructions: Thank you for choosing [facility] for your healthcare needs today. It is very important that you follow up as instructed or that you return to the Emergency Department should you have concerns or if your condition changes or worsens in any way. Emergency department visits are focused on emergent conditions, in some cases you may require further evaluation on an outpatient basis. You are seen emergency room with a finger laceration. Since it was greater than 12 hours we Steri-Stripped the finger to allow it to drain recommend a short course of oral antibiotics your tetanus was updated follow-up with your primary care doctor. Leave the Steri-Strips in place until they come off on their own which should be in around 4 to 5 days. (Please note that included in your discharge packet is information concerning opioid safety and pain management. This information is given to all patients were discharged from the ER regardless of their discharge diagnosis or the medicines they usually take or are prescribed.) Print Language: Pashto Coding Level of Care Code ED Geographical Historian for Liz Jimenez
== END 2025-06-29 09:25 | disposition home or self-care (01) ==
PROVIDERS: Emergency Provider Family Medicine; PCP Family Medicine
DX: S61.213A Laceration without foreign body of left middle finger without damage to nail, initial encounter (principal); F17.210 Nicotine dependence, cigarettes, uncomplicated; X58.XXXA Exposure to other specified factors, initial encounter
CPT/HCPCS: 90471; 90715; 99283

== ENCOUNTER → 2025-08-24 13:13 | Outpatient (BNVA) | payer MEDICARE, MEDICAID, OTHER, SELFPAY ==
[2024-09-09 11:09] VITALS: BP 113/79; BMI 22.0
== END ==
PROVIDERS: PCP Family Medicine; Visit Provider Nurse Practitioner Psychiatric/Mental Health
DX: Z79.899 Other long term (current) drug therapy (principal)
CPT/HCPCS: 80053; 80061; 83036